=== PATIENT | male | born 1965 | race Caucasian/White ===

== ENCOUNTER 2017-09-23 18:19 | Inpatient (IN) | payer OTHER ==
[~2017-09-23] VITALS: Ht 170.2 cm; Wt 74.7 kg
[2017-09-23] MEDS ORDERED: SODIUM CHLORIDE 0.9% 1L BAG IV* STA (18:37)
--- NOTE | 2017-09-23 19:13 | RADRPT ---
PROCEDURE: Portable chest x-ray. CLINICAL INDICATION: Sepsis. TECHNIQUE: Portable AP view of the chest. COMPARISON: None. FINDINGS: No pulmonary edema or conolidation is identified. The cardiac silhouette is magnified. No pleural effusion is seen. There is no pneumothorax. IMPRESSION: 1. No evidence of acute cardiopulmonary disease. RPTAT: HTAR .Amaury Fonseca MD, MD Date Time Electronically viewed and signed by .Amaury Fonseca MD, on 09/23/2017 19:13 .R/
[2017-09-23 19:23] LABS: ABNORMAL IP MESSAGE 1; HEMATOCRIT 22.1 % (42.0-52.0); HEMOGLOBIN 7.2 g/dl (14.0-18.0); MEAN CORPUSCULAR HEMOGLOBIN 28.5 pg (29.0-33.0); MEAN CORPUSCULAR HGB CONC 32.6 g/dl (32.0-37.0); MEAN CORPUSCULAR VOLUME 87.4 fl (82.0-101.0); MEAN PLATELET VOLUME 9.6 fl (7.4-10.4); PLATELET COUNT 141 10^3/UL (140-415); POSITIVE DIFF @See below; RED BLOOD COUNT 2.53 10^6/ul (4.70-6.10); RED CELL DISTRIBUTION WIDTH 17.9 % (11.5-14.5); WHITE BLOOD COUNT 1.7 10^3/ul (4.8-10.8)
[2017-09-23] MEDS ORDERED: FENTAnyl 50 MCG/ML VIAL IV ONE (19:30)
[2017-09-23] MEDS ORDERED: ENAL10TA PO (19:34)
[2017-09-23] MEDS ORDERED: GLIM4TAB PO (19:34)
[2017-09-23 19:35] LABS: ALANINE AMINOTRANSFERASE 27 IU/L (13-69); ALBUMIN 3.3 g/dl (3.3-4.9); ALBUMIN/GLOBULIN RATIO 1.37; ALKALINE PHOSPHATASE 148 IU/L (42-121); ANION GAP 10 (8-16); ASPARTATE AMINO TRANSFERASE 30 IU/L (15-46); BILIRUBIN,INDIRECT 0.6 mg/dl (0-1.1); BILIRUBIN,TOTAL 0.6 mg/dl (0.2-1.3); BLOOD UREA NITROGEN 7 mg/dl (7-20); CALCIUM 8.2 mg/dl (8.4-10.2); CARBON DIOXIDE 23 mmol/L (21-31); CHLORIDE 106 mmol/L (97-110); CREATININE 1.13 mg/dl (0.61-1.24); GLUCOSE 129 mg/dl (70-220); POTASSIUM 3.4 mmol/L (3.5-5.1); SODIUM 136 mmol/L (135-144); TOTAL PROTEIN 5.7 g/dl (6.1-8.1)
[2017-09-23] MEDS ORDERED: BICA50TA4 PO (19:35)
[2017-09-23] MEDS ORDERED: ASC500 PO (19:35)
[2017-09-23] MEDS ORDERED: MTF1000T PO (19:35)
[2017-09-23] MEDS ORDERED: DULO20CA17 PO (19:36)
[2017-09-23] MEDS ORDERED: SITA100T8 PO (19:36)
[2017-09-23] MEDS ORDERED: SIMV40TA2 PO (19:36)
[2017-09-23] MEDS ORDERED: BENZ-5 PO (19:37)
[2017-09-23] MEDS ORDERED: FER325 PO (19:37)
[2017-09-23 19:40] LABS: INR 1.24; PARTIAL THROMBOPLASTIN TIME 33.8 Sec (25.0-35.0); PROTIME 15.8 Sec (11.9-14.9); PT RATIO 1.2
--- NOTE | 2017-09-23 19:47 | ERD ---
ER Documentation Chief Complaint Chief Complaint sent by pmd for low hemoglobin 7.1, on chemo therapy HPI 52y/o male, h/o diabetes, hypertension, dyslipidemia, anemia and Stage IV prostate cancer on chemotherapy, referred to ED by Oncology, Dr Lowery, for evaluation of anemia found on routine lab work yesterday. He reports ongoing severe generalized body, weakness, malaise and dizziness for several months. No chest pain , palpitations, shortness of breath or abdominal pain. Nausea but no vomiting or diarrhea. No hemoptysis, hematemesis, hematochezia or melanotic stools. Denies dysuria, polyuria, hematuria of flank pain. Chronic, nonpruritic rash on lower abdomen and upper thighs. Anorexia and weight loss but fevers, chills or night sweats. ROS All systems reviewed and are negative except as per history of present illness. Medications Home Meds Reported Medications Terazosin Hcl* (Terazosin Hcl*) 10 Mg Capsule, 10 MG PO HS, CAP 09/24/17 Ferrous Sulfate* (Ferrous Sulfate*) 325 Mg Tabec, 325 MG PO BID, TAB 09/23/17 Duloxetine Hcl* (Duloxetine Hcl*) 20 Mg Capsule.dr, 20 MG PO DAILY, #30 CAP 09/23/17 Simvastatin* (Zocor*) 40 Mg Tablet, 40 MG PO QHS, #30 TAB 09/23/17 Sitagliptin* (Januvia*) 100 Mg Tablet, 100 MG PO DAILY, #30 TAB 09/23/17 Metformin* (Glucophage*) 1,000 Mg Tablet, 1000 MG PO WITH BREAKFAST DINNE, #60 TAB 09/23/17 Bicalutamide* (Bicalutamide*) 50 Mg Tablet, 50 MG PO DAILY, TAB 09/23/17 Ascorbic Acid (Vitamin C) 500 Mg Tab, 500 MG PO BID, TAB 09/23/17 Glimepiride* (Glimepiride*) 4 Mg Tablet, 4 MG PO WITH BREAKFAST, TAB 09/23/17 Enalapril Maleate* (Enalapril Maleate*) 10 Mg Tablet, 10 MG PO DAILY, TAB 09/23/17 Allergies Allergies: Coded Allergies: No Known Allergy (Unverified , 09/23/17) PMhx/Soc Reviewed in chart. As per HPI. History of Surgery: Yes (LEFT MIDDLE FINGER SURGERY ) Hx Neurological Disorder: No Hx Respiratory Disorders: No Hx Cardiac Disorders: No Hx Psychiatric Problems: Yes (Depression) Hx Miscellaneous Medical Probl: Yes (DM, PROSATE AND BONE CA) Hx Alcohol Use: No Hx Substance Use: No Hx Tobacco Use: No Smoking Status: Never smoker FmHx No family history relevant to presenting complaint Physical Exam Vitals Vital Signs Date Time Temp Pulse Resp B/P Pulse Ox O2 Delivery O2 Flow Rate FiO2 09/23/17 20:54 85 17 111/66 100 Room Air 09/23/17 19:29 89 12 111/63 99 Room Air 09/23/17 18:24 98.9 114 18 79/46 98 Physical Exam Const: Alert, Ill-appearing Head: Atraumatic, alopecia Eyes: Pale Conjunctiva. GABRIEL, EOMI. No nystagmus. ENT: Normal External Ears, Nose and Mouth. No thrush. Neck: Full range of motion. No meningismus. Resp: Clear to auscultation bilaterally Cardio: Tachycardia regular rate and rhythm, no murmurs Abd: Soft, non tender, non distended. Normal bowel sounds Skin: No petechiae. Erythematous, maculopapular rash on lower abdomen and upper thighs. Back: No midline or flank tenderness Ext: No cyanosis, or edema. No calf swelling or tenderness. Pulses 4 + in all extremities Neur: Awake and alert. CN II-XII grossly intact. Motor and sensory equal bilaterally. No dysdiadochokinesis. Gait not tested. Psych: Anxious and appears depressed Result Diagram: 09/26/174 09/26/17 0444 Results 24 hrs Laboratory Tests Test 09/23/17 18:45 09/23/17 20:45 White Blood Count 1.710^3/ul Red Blood Count 2.5310^6/ul Hemoglobin 7.2g/dl Hematocrit 22.1% Mean Corpuscular Volume 87.4fl Mean Corpuscular Hemoglobin 28.5pg Mean Corpuscular Hemoglobin Concent 32.6g/dl Red Cell Distribution Width 17.9% Platelet Count 97043^3/UL Mean Platelet Volume 9.6fl Neutrophils % % Segmented Neutrophils % (Manual) 40% Band Neutrophils % (Manual) 18% Lymphocytes % % Lymphocytes % (Manual) 29% Monocytes % % Monocytes % (Manual) 11% Eosinophils % % Eosinophils % (Manual) 1% Basophils % % Basophils % (Manual) 1% Nucleated Red Blood Cells % 0.0/100WBC Neutrophils # 10^3/ul Neutrophils # (Manual) 0.710^3/ul Band Neutrophils # 0.310^3/ul Absolute Lymphocytes (Manual) 0.410^3/ul Lymphocytes # 10^3/ul Monocytes # 10^3/ul Absolute Monocytes (Manual) 0.110^3/ul Eosinophils # 10^3/ul Basophils # 10^3/ul Basophils # (Manual) 0.010^3/ul Nucleated Red Blood Cells # 10^3/ul Pathologist Review (Hematology) CH Platelet Estimate NORMAL Giant Platelets 2% Polychromasia 3+ Poikilocytosis 3+ Anisocytosis 3+ Microcytosis 3+ Prothrombin Time 15.8Sec Prothrombin Time Ratio 1.2 INR International Normalized Ratio 1.24 Activated Partial Thromboplast Time 33.8Sec Sodium Level 136mmol/L Potassium Level 3.4mmol/L Chloride Level 106mmol/L Carbon Dioxide Level 23mmol/L Anion Gap 10 Blood Urea Nitrogen 7mg/dl Creatinine 1.13mg/dl Glucose Level 129mg/dl Lactic Acid Level 3.3mmol/L 2.6mmol/L Calcium Level 8.2mg/dl Total Bilirubin 0.6mg/dl Direct Bilirubin 0.00mg/dl Indirect Bilirubin 0.6mg/dl Aspartate Amino Transf (AST/SGOT) 30IU/L Alanine Aminotransferase (ALT/SGPT) 27IU/L Alkaline Phosphatase 148IU/L Troponin I < 0.012ng/ml Total Protein 5.7g/dl Albumin 3.3g/dl Globulin 2.40g/dl Albumin/Globulin Ratio 1.37 Urine Color YELLOW Urine Clarity CLOUDY Urine pH 5.0 Urine Specific [place] 1.010 Urine Ketones NEGATIVEmg/dL Urine Nitrite NEGATIVEmg/dL Urine Bilirubin NEGATIVEmg/dL Urine Urobilinogen NEGATIVEmg/dL Urine Leukocyte Esterase NEGATIVELeu/ul Urine Microscopic RBC 1/HPF Urine Microscopic WBC 8/HPF Urine Amorphous Crystals MODERATE/HPF Urine Bacteria FEW/HPF Urine Mucus FEW/HPF Urine Hemoglobin NEGATIVEmg/dL Urine Glucose NEGATIVEmg/dL Urine Total Protein 2+mg/dl Current Medications Medications (Trade) Dose Ordered Sig/Joe Route PRN Reason Start Time Stop Time Status Last Admin Dose Admin Sodium Chloride (NS) 2,320 ml BOLUS OVER 2 HOURS STAT IV* 09/23/17 18:37 09/23/17 18:41 DC 09/23/17 19:17 Fentanyl 25 mcg 25 mcg ONCE ONCE IV 09/23/17 19:30 09/23/17 19:32 DC 09/23/17 19:24 Vancomycin HCl 250 ml @ 125 mls/hr ONCE STAT IVPB 09/23/17 20:13 09/23/17 22:12 DC 09/23/17 20:13 Cefepime HCl (Maxipime 2gm/50 ml (Pmx)) 50 ml @ 100 mls/hr ONCE STAT IVPB 09/23/17 20:13 09/23/17 20:42 DC 09/23/17 20:42 Filgrastim (Neupogen) 480 mcg ONCE ONCE SC 09/23/17 21:00 09/23/17 21:01 DC 09/23/17 22:16 EKG: TIME: 18: 45. Sinus rhythm. Ventricular rate 90. Normal MT and QRS. Left axis deviation. No acute ST segment elevation or depression. No ectopy. EP Interpretation: Abnormal EKG. IMAGING: Cardiac silhouette is normal. The costophrenic angles are clear. No effusions or infiltrates. No abnormalities of the bony thorax. EP interpretation: Normal chest x-ray. Procedures/MDM DOCUMENTS REVIEWED: ED nurse, no prior records MEDICAL DECISION MAKINy/o male, h/o diabetes, hypertension, dyslipidemia, anemia and Stage IV prostate cancer on chemotherapy, referred to ED by Oncology , Dr Lowery, for evaluation of anemia found on routine lab work yesterday. Patient with absolute neutrophil count of 0.4, elevated Lactate 3.3 with repeat of 2.6 consistent with severe sepsis, however no infectious etiology identified. Other causes of lactate acidosis considered. Hypotensive in triage but repeat BP in the ED normal and stable. 30cc/kg fluid bolus given and antibiotics initiated after broad spectrum cultures. Severe anemia pending transfusion. As per oncology recommendation Neupogen ordered. Ongoing generalized body pain due to metastatic disease treated with appropriate analgesics. Dizziness of uncertain etiology that has been present since the initiation of chemotherapy may be drug induced. No focal deficit, headache, seizure, signs of increased ICP or indication for emergent neuroimaging, although intracranial metastatic disease is possible. Patient's infectious symptoms have not stabilized and the patient is at risk of rapid decompensation. The patient will be admitted to an isolation bed for careful hydration, antibiotic therapy, and infectious source control. Accepting Care Team Current data and ongoing care discussed. Time: [] Admitting Physician: [] Biscuitware Brusher(s): Outstanding Data: []None Critical Care Time: 40 minutes Treatments/Evaluations: Close monitoring and treatment of unstable vital signs, cardiorespiratory, and neurologic status, while maintaining tight balance of fluid, respiratory, and cardiac interventions. This includes the administration of emergency fluid management while maintaining close respiratory support as well as the provision of immediate and broad-spectrum antibiotic therapy, while performing a simultaneous assessment for possible sources in order to direct targeted therapy. This time includes discussing the case with the patient and the patient's family. This time also includes the consideration for invasive and chemical support to prevent cardiopulmonary collapse. This time does not include all procedures stated elsewhere in this record. This time also includes reviewing old records, labs and radiological studies. This time includes examining and re-examining the patient. Additionally, this time also includes arranging care with admitting and consulting physicians. Counseled [patient and family] regarding diagnosis, diagnostic results and plan for admission. CALLS/CONSULTS: Time 20:50, Dr. Lowery, Recommends agrees with telemetry admission. CALLS/CONSULTS: Time 20:50, Dr. Pulido, Recommends agrees with telemetry admission. PATIENT CARE TRANSITIONED: Time: 21:02, Dr. Pulido. Departure Diagnosis: Primary Impression: Severe sepsis Additional Impressions: Neutropenia Neutropenia type: secondary to cancer chemotherapy Qualified Code: D70.1 - Chemotherapy-induced neutropenia Severe anemia Prostate CA Condition: Serious KIRSTEN VARGAS MD Sep 23, 2017 19:47 KIRSTEN VARGAS MD Sep 23, 2017 19:47
[2017-09-23] MEDS ORDERED: VANCOMYCIN 1 GM (PMX) 250 ML IVPB STA (20:13)
[2017-09-23] MEDS ORDERED: CEFEPIME 2GM/50 ML (PMX) 50 ML IVPB STA (20:13)
[2017-09-23 20:20] LABS: ANISOCYTOSIS 3+ (0-0); BASOPHILS % (M) 1 % (0-2); BURR CELLS 2+ (0-0); EOSINOPHILS % (M) 1 % (0-7); GIANT THROMBO% (M) 2 % (0-0); MICROCYTOSIS 3+ (0-0); MONOCYTES % (M) 11 % (0-11); PLATELET ESTIMATE NORMAL; POIKILOCYTOSIS 3+ (0-0); POLYCHROMASIA 3+ (0-0)
[2017-09-23 20:25] LABS: PATH REVIEW? YES; TROPONIN-I < 0.012 ng/ml (0.00-0.12)
[2017-09-23] MEDS ORDERED: FILGRASTIM 480 MCG INJ SC ONE (21:00)
[2017-09-23 21:19] LABS: ADD UMIC YES; UR AMORPHOUS CRYSTAL MODERATE /HPF (NONE SEEN); UR ASCORBIC ACID 40 mg/dL (NEGATIVE); UR BACTERIA FEW /HPF (NONE SEEN); UR BILIRUBIN (Dip) NEGATIVE (NEGATIVE); UR BLOOD (Dip) NEGATIVE (NEGATIVE); UR CLARITY CLOUDY (CLEAR); UR COLOR YELLOW (YELLOW); UR GLUCOSE (Dip) NEGATIVE (NEGATIVE); UR KETONES (Dip) NEGATIVE (NEGATIVE); UR LEUKOCYTE ESTERASE (Dip) NEGATIVE Leu/ul (NEGATIVE); UR MUCUS FEW /HPF (NONE SEEN); UR NITRITE (Dip) NEGATIVE (NEGATIVE); UR RBC 1 /HPF (0-5); UR TOTAL PROTEIN (Dip) 2+ mg/dl (NEGATIVE); UR UROBILINOGEN (Dip) NEGATIVE (NEGATIVE)
[2017-09-23] MEDS ORDERED: ACETAMINOPHEN 325 MG TAB PO PRN ×2 (21:30→23:30)
[2017-09-23] MEDS ORDERED: ONDANSETRON 4 MG INJ IV PRN (21:30)
[2017-09-23 23:25] VITALS: BP 112/54; PULSE 96; RESP 18
[2017-09-23] MEDS ORDERED: morphine 2 MG INJ IV PRN (23:30)
[2017-09-23] MEDS ORDERED: BENZONATATE 100 MG CAP PO PRN (23:30)
[2017-09-23] MEDS ORDERED: NACL 0.9% 3 ML SYG IV SCH (23:30)
[2017-09-23] MEDS ORDERED: ALBUTEROL/IPRATROPIUM (NEB) 3 ML AMP HHN PRN (23:30)
[2017-09-23 23:45] VITALS: Ht 170.2 cm; Wt 74.7 kg
[2017-09-23] MEDS: SOD CHLORIDE 0.9% 1,000 ML IV SCH (23:49)
[2017-09-24] VITALS (9 sets, daily range): BP systolic 98–122; BP diastolic 57–78; PULSE 81–90; RESP 16–20
[2017-09-24] MEDS ORDERED: HYDROCODONE/APAP (10/325) TAB PO PRN (05:30)
[2017-09-24 06:19] LABS: BASOPHILS % 0.8 % (0.0-2.0); EOSINOPHILS % 0.4 % (0.0-7.0); HEMATOCRIT 25.7 % (42.0-52.0); HEMOGLOBIN 8.5 g/dl (14.0-18.0); LYMPHOCYTES # 0.8 10^3/ul (0.8-2.9); LYMPHOCYTES % 31.1 % (15.0-51.0); MEAN CORPUSCULAR HGB CONC 33.1 g/dl (32.0-37.0); MEAN CORPUSCULAR VOLUME 87.7 fl (82.0-101.0); MEAN PLATELET VOLUME 10.1 fl (7.4-10.4); MONOCYTE # 0.4 10^3/ul (0.3-0.9); MONOCYTES % 15.7 % (0.0-11.0); NEUTROPHIL # 1.3 10^3/ul (1.6-7.5); NEUTROPHILS % 51.2 % (39.0-77.0); PLATELET COUNT 155 10^3/UL (140-415); POSITIVE DIFF @See below; RED BLOOD COUNT 2.93 10^6/ul (4.70-6.10); RED CELL DISTRIBUTION WIDTH 16.7 % (11.5-14.5); WHITE BLOOD COUNT 2.5 10^3/ul (4.8-10.8)
[2017-09-24 06:39] LABS: IRON 84 ug/dl (35-150)
[2017-09-24 06:49] LABS: TOTAL IRON BINDING CAPACITY 251 ug/dl (241-421)
[2017-09-24 06:59] LABS: ALBUMIN 3.2 g/dl (3.3-4.9); ALBUMIN/GLOBULIN RATIO 1.18; BILIRUBIN,INDIRECT 1.5 mg/dl (0-1.1); BILIRUBIN,TOTAL 1.5 mg/dl (0.2-1.3); CALCIUM 8.1 mg/dl (8.4-10.2); CHOL/HDL RATIO 3.9 RATIO; CREATININE 0.96 mg/dl (0.61-1.24); MAGNESIUM 2.2 mg/dl (1.7-2.5); PHOSPHORUS 1.3 mg/dl (2.5-4.9); POTASSIUM 3.3 mmol/L (3.5-5.1); TOTAL PROTEIN 5.9 g/dl (6.1-8.1)
--- NOTE | 2017-09-24 07:43 | HP ---
Date/Time of Note Date/Time of Note DATE: 09/24/17 TIME: 07:38 Assessment/Plan VTE Prophylaxis VTE Prophylaxis Intervention: SCD's Lines/Catheters IV [facility] (from [facility]): Peripheral IV Assessment/Plan Assessment/Plan 1. Bicytopenia, with anemia and leukopenia: Chemo induced -Blood transfusion -Neutropenic precaution -Check for iron deficiency -Consider Neupogen 2. Stage IV prostate cancer: On chemo, last was 3 weeks ago -He will follow-up with oncologist as outpatient 3. History of hypertension: Blood pressure within goal -Continue antihypertensives adjustment as needed 4. Type 2 diabetes -Insulin while in-house 5. History of dyslipidemia -Continue statin Urinary tract infection -IV antibiotics -Follow-up culture results HPI/ROS Admit Date/Time Admit Date/Time Sep 23, 2017 at 21:21 Hx of Present Illness This is a 52-year-old male with a history of stage IV prostate cancer on chemo, hypertension, type 2 diabetes, dyslipidemia, depression, iron deficiency anemia. Patient was sent by his oncologist because of abnormal lab values including anemia and leukopenia. He complains of generalized weakness and chronic total body pain mainly back pain. Denied chest pain, shortness of breath, fever, chills, nausea or vomiting. When he presented to the ER he was found to have a hemoglobin of 7.2, WBC 1.7, potassium 3.4, initial lactate of 3.3 which trended down to 2.1 and alkaline phosphatase of 148. Urinalysis was consistent with UTI. His vitals have been stable. PMH/Family/Social Social History Smoking Status: Never smoker Exam/Review of Systems Vital Signs Vitals Vital Signs Date Time Temp Pulse Resp B/P Pulse Ox O2 Delivery O2 Flow Rate FiO2 09/24/17 05:00 98.2 82 16 98/57 98 Room Air Intake and Output 09/23/17 09/23/17 09/24/17 15:00 23:00 07:00 Intake Total 2320 ml 800 ml Balance 2320 ml 800 ml Exam Constitutional: alert, oriented, well developed Head: atraumatic, normocephalic Eyes: EOMI, PERRL Respiratory: clear to auscultation, normal air movement Cardiovascular: nl pulses, regular rate and rhythm Gastrointestinal: non-tender, soft Extremities: normal pulses Labs Result Diagram: 09/24/17 0500 09/24/17 0500 Medications Medications Current Medications Sodium Chloride (NS) 1,000 ml @ 100 mls/hr Q10H IV Last administered on 23:49; Admin Dose 100 MLS/HR; Start 09/23/17 at 23:23; Stop 09/24/17 at 23: 00 Ondansetron HCl (Zofran Inj) 4 mg Q6H PRN IV NAUSEA AND/OR VOMITING; Start 09/23/17 at 23:30 Acetaminophen (Tylenol Tab) 650 mg Q6H PRN PO PAIN LEVEL 1-3 OR FEVER; Start 09/23/17 at 23:30 Morphine Sulfate (morphine) 2 mg Q4H PRN IV SEVERE PAIN LEVEL 7-10 Last administered on 09/23/17 23:48; Admin Dose 2 MG; Start 09/23/17 at 23:30 Famotidine (Pepcid) 20 mg Q12 PO ; Start 09/24/17 at 09:00 Ascorbic Acid (Vitamin C) 500 mg BID PO ; Start 09/24/17 at 09:00 Benzonatate (Tessalon) 100 mg TID PRN PO COUGH; Start 09/23/17 at 23:30 Bicalutamide (Casodex) 50 mg DAILY PO ; Start 09/24/17 at 09:00 Duloxetine HCl (Cymbalta) 20 mg DAILY PO ; Start 09/24/17 at 09:00 Enalapril Maleate (Vasotec) 10 mg DAILY PO ; Start 09/24/17 at 09:00 Ferrous Sulfate (Ferrous Sulfate (Ec)) 325 mg BID PO ; Start 09/24/17 at 09:00 Atorvastatin Calcium (Lipitor) 20 mg DAILY@21 PO ; Start 09/24/17 at 21:00 Linagliptin 5 mg 5 mg DAILY PO ; Start 09/24/17 at 09:00 Ceftriaxone Sodium (Rocephin) 50 ml @ 100 mls/hr Q12H IVPB ; Start 09/24/17 at 09:00 Acetaminophen/ Hydrocodone Bitart ([place] (10/325)) 1 tab Q4H PRN PO PAIN; Start 09/24/17 at 05:30 OMAYRA BLAIR MD Sep 24, 2017 07:43
[2017-09-24] MEDS ORDERED: CEFTRIAXONE 1 GM/50 ML (PMX) 50 ML IVPB SCH (09:00)
[2017-09-24] MEDS: SOD CHLORIDE 0.9% 1,000 ML IV SCH ×2 (09:23→19:23)
[2017-09-24] MEDS: ASCORBIC ACID 500 MG TAB PO SCH ×2 (09:33→20:54)
[2017-09-24] MEDS: LINAGLIPTIN 5 MG TABLET PO SCH (09:34)
[2017-09-24] MEDS: FERROUS SULFATE (EC) 325 MG TAB PO SCH ×2 (09:34→20:54)
[2017-09-24] MEDS: DULOXETINE 20 MG CAP DR PO SCH (09:34)
[2017-09-24] MEDS: ENALAPRIL 10 MG TAB PO SCH (09:35)
[2017-09-24] MEDS: FAMOTIDINE 20 MG TAB PO SCH ×2 (09:35→20:55)
[2017-09-24] MEDS ORDERED: VANCOMYCIN IV PER PHARMACY XX SCH (10:30)
[2017-09-24] MEDS: BICALUTAMIDE 50 MG TAB PO SCH (11:37)
[2017-09-24] MEDS ORDERED: POTASSIUM CHLORIDE 250 ML IVPB ONE (12:00)
[2017-09-24] MEDS: NYSTATIN 15 GM CR TOP SCH ×2 (12:37→21:08)
[2017-09-24] MEDS: PIPER-TAZO 3.375 GM IV (PMX) 50 ML IVPB SCH ×3 (12:37→23:45)
[2017-09-24] MEDS: ONDANSETRON 4 MG INJ IV PRN ×2 (13:16→22:37)
--- NOTE | 2017-09-24 14:37 | PN ---
Date/Time of Note Date/Time of Note DATE: 09/24/17 TIME: 14:36 Assessment/Plan VTE Prophylaxis VTE Prophylaxis Intervention: SCD's Lines/Catheters [facility] Peripheral IV Urinary Cath still in place: No Assessment/Plan Chief Complaint/Hosp Course Subjective Patient has multiple complaints, however are chronic Objective Physical exam General: Patient is laying in bed and answers questions appropriately Mentation: Patient is alert and oriented 4, Head: Normocephalic atraumatic Eyes: EOMI, pupils reactive to light Neck: Supple, nontender, midline Respiratory: Clear to auscultation bilaterally Cardiovascular: regular rate, no obvious murmurs Gastrointestinal: non-tender to palpation, bowel sounds heard. Neurological: Moves all extremities spontaneously Skin: mild erythematous rash on abdomen and thigh Assessment and plan Neutropenia and [place] -Patient's oncologist's office was called, however no one picked up, no answering service will try again tomorrow -Was sent per oncologist for transfusion, received 1 unit Bilateral vision loss -Chronic, patient states that ever since he started chemotherapy his vision has been decreasing -Patient states that oncologist stated this was normal, very likely reaction to chemotherapy -CT head pending Abdominal dermatitis -Including thigh and buttock area -Possible fungal rash given neutropenic state -Nystatin cream UTI -Broad-spectrum antibiotics giving neutropenic state Stage IV prostate cancer -On chemo 9 cycles total so far -Radiation therapy is pending for next year Hypertension -Continue home meds as needed Diabetes -Insulin Disposition -PT OT and dispose home when safe, patient and patient's wants to go home after. Problems: Exam/Review of Systems Vital Signs Vitals Vital Signs Date Time Temp Pulse Resp B/P Pulse Ox O2 Delivery O2 Flow Rate FiO2 09/24/17 08:14 98.5 81 18 103/59 98 09/24/17 05:00 Room Air Intake and Output 09/23/17 09/23/17 09/24/17 15:00 23:00 07:00 Intake Total 2320 ml 800 ml Balance 2320 ml 800 ml Results Result Diagram: 09/24/17 0500 09/24/17 0500 Results 24 hrs Laboratory Tests Test 09/23/17 18:45 09/23/17 20:45 09/23/17 22:52 09/24/17 05:00 White Blood Count 1.7 L 2.5 #L Red Blood Count 2.53 L 2.93 L Hemoglobin 7.2 L 8.5 L Hematocrit 22.1 L 25.7 L Mean Corpuscular Volume 87.4 87.7 Mean Corpuscular Hemoglobin 28.5 L 29.0 Mean Corpuscular Hemoglobin Concent 32.6 33.1 Red Cell Distribution Width 17.9 H 16.7 H Platelet Count 141 155 Mean Platelet Volume 9.6 10.1 Neutrophils % 51.2 Segmented Neutrophils % (Manual) 40 Band Neutrophils % (Manual) 18 H Lymphocytes % 31.1 Lymphocytes % (Manual) 29 Monocytes % 15.7 H Monocytes % (Manual) 11 Eosinophils % 0.4 Eosinophils % (Manual) 1 Basophils % 0.8 Basophils % (Manual) 1 Nucleated Red Blood Cells % 0.0 0.0 Neutrophils # 1.3 L Neutrophils # (Manual) 0.7 L Band Neutrophils # 0.3 Absolute Lymphocytes (Manual) 0.4 L Lymphocytes # 0.8 Monocytes # 0.4 Absolute Monocytes (Manual) 0.1 L Eosinophils # 0.0 Basophils # 0.0 Basophils # (Manual) 0.0 Nucleated Red Blood Cells # 0.0 Pathologist Review (Hematology) YES Platelet Estimate NORMAL Giant Platelets 2 H Polychromasia 3+ Poikilocytosis 3+ Anisocytosis 3+ Microcytosis 3+ Prothrombin Time 15.8 H Prothrombin Time Ratio 1.2 INR International Normalized Ratio 1.24 Activated Partial Thromboplast Time 33.8 Sodium Level 136 143 Potassium Level 3.4 L 3.3 L Chloride Level 106 111 H Carbon Dioxide Level 23 24 Anion Gap 10 11 Blood Urea Nitrogen 7 6 L Creatinine 1.13 0.96 Glucose Level 129 74 # Lactic Acid Level 3.3 *H 2.6 *H 2.1 H Calcium Level 8.2 L 8.1 L Total Bilirubin 0.6 1.5 H Direct Bilirubin 0.00 0.00 Indirect Bilirubin 0.6 1.5 H Aspartate Amino Transf (AST/SGOT) 30 37 Alanine Aminotransferase (ALT/SGPT) 27 26 Alkaline Phosphatase 148 H 145 H Troponin I < 0.012 Total Protein 5.7 L 5.9 L Albumin 3.3 3.2 L Globulin 2.40 2.70 Albumin/Globulin Ratio 1.37 1.18 Urine Color YELLOW Urine Clarity CLOUDY A Urine pH 5.0 Urine Specific [place] 1.010 Urine Ketones NEGATIVE Urine Nitrite NEGATIVE Urine Bilirubin NEGATIVE Urine Urobilinogen NEGATIVE Urine Leukocyte Esterase NEGATIVE Urine Microscopic RBC 1 Urine Microscopic WBC 8 H Urine Amorphous Crystals MODERATE Urine Bacteria FEW A Urine Mucus FEW A Urine Hemoglobin NEGATIVE Urine Glucose NEGATIVE Urine Total Protein 2+ H Hemoglobin A1c 5.9 Phosphorus Level 1.3 L Magnesium Level 2.2 Iron Level 84 Total Iron Binding Capacity 251 Percent Iron Saturation 33 Ferritin 495.0 H Triglycerides Level 210 H Cholesterol Level 95 L LDL Cholesterol, Calculated 29 HDL Cholesterol 24 L Cholesterol/HDL Ratio 3.9 Test 09/24/17 07:07 09/24/17 09:33 09/24/17 12:45 Lab Scanned Report BLOOD TRANSFUSION Bedside Glucose 78 92 Medications Medications Current Medications Sodium Chloride (NS) 1,000 ml @ 100 mls/hr Q10H IV Last administered on 23:49; Admin Dose 100 MLS/HR; Start 09/23/17 at 23:23; Stop 09/24/17 at 23: 00 Ondansetron HCl (Zofran Inj) 4 mg Q6H PRN IV NAUSEA AND/OR VOMITING Last administered on 09/24/17 13:16; Admin Dose 4 MG; Start 09/23/17 at 23:30 Acetaminophen (Tylenol Tab) 650 mg Q6H PRN PO PAIN LEVEL 1-3 OR FEVER; Start 09/23/17 at 23:30 Morphine Sulfate (morphine) 2 mg Q4H PRN IV SEVERE PAIN LEVEL 7-10 Last administered on 09/23/17 23:48; Admin Dose 2 MG; Start 09/23/17 at 23:30 Famotidine (Pepcid) 20 mg Q12 PO Last administered on 09/24/17 09:35; Admin Dose 20 MG; Start 09/24/17 at 09:00 Ascorbic Acid (Vitamin C) 500 mg BID PO Last administered on 09/24/17 09:33; Admin Dose 500 MG; Start 09/24/17 at 09:00 Benzonatate (Tessalon) 100 mg TID PRN PO COUGH; Start 09/23/17 at 23:30 Bicalutamide (Casodex) 50 mg DAILY PO Last administered on 09/24/17 11:37; Admin Dose 50 MG; Start 09/24/17 at 09:00 Duloxetine HCl (Cymbalta) 20 mg DAILY PO Last administered on 09/24/17 09:34; Admin Dose 20 MG; Start 09/24/17 at 09:00 Enalapril Maleate (Vasotec) 10 mg DAILY PO Last administered on 09/24/17 09:35 ; Admin Dose 10 MG; Start 09/24/17 at 09:00 Ferrous Sulfate (Ferrous Sulfate (Ec)) 325 mg BID PO Last administered on 09:34; Admin Dose 325 MG; Start 09/24/17 at 09:00 Atorvastatin Calcium (Lipitor) 20 mg DAILY@21 PO ; Start 09/24/17 at 21:00 Linagliptin (Tradjenta) 5 mg DAILY PO Last administered on 09/24/17 09:34; Admin Dose 5 MG; Start 09/24/17 at 09:00 Acetaminophen/ Hydrocodone Bitart 1 tab 1 tab Q4H PRN PO PAIN Last administered on 09/24/17 12:38; Admin Dose 1 TAB; Start 09/24/17 at 05:30 Vancomycin HCl 250 ml @ 125 mls/hr Q12H IVPB ; Start 09/24/17 at 13:00 Piperacillin Sod/ Tazobactam Sod 50 ml @ 100 mls/hr Q6 IVPB Last administered on 09/24/17 12:37; Admin Dose 100 MLS/HR; Start 09/24/17 at 12:00 Potassium Chloride (KCl 40 MEQ/250 ML NS) 250 ml @ 62.5 mls/hr ONCE ONCE IVPB ; Start 09/24/17 at 12:00; Stop 09/24/17 at 15:59 Nystatin (Nystatin Cr) 1 applic BID TOP Last administered on 09/24/17 12:37; Admin Dose 1 APPLIC; Start 09/24/17 at 13:00 Miscellaneous Information (*Rx Drug Level Order Reminder*) VANCOMYCIN TROUGH ON @ .. ONCE ONCE XX ; Start 09/25/17 at 12:00; Stop 09/25/17 at 12:01 OLYA LOPEZ Sep 24, 2017 14:37
[2017-09-24] MEDS: VANCOMYCIN 1 GM (PMX) 250 ML IVPB SCH (15:07)
--- NOTE | 2017-09-24 15:57 | RADRPT ---
PROCEDURE: CT Brain without contrast. CLINICAL INDICATION: Decreased vision. TECHNIQUE: A CT of the brain without contrast was performed utilizing axial sections from the skul l base through the vertex. One or more the following does reduction techniques were utilized: Automa jina exposure control, adjustment of the mA/ or kV according to patient's size, or use of iterative r econstruction technique. Total exam CTDIvol is 45.01 MGy and DLP is 720.23 mGy-cm. DICOM images are available. COMPARISON: None available. FINDINGS: The ventricles and sulci are mildly prominent indicative of volume loss. There is no intracranial h emorrhage, mass effect or midline shift. No abnormal intra-axial or extra-axial fluid collections a re seen. The gomez/white matter differentiation is well preserved. There are mild foci of hypoattenuation in the white matter, which are nonspecific in etiology but li arianna reflect chronic small vessel ischemic changes. There is prominent retrocerebellar CSF space grayson suring 1.6 cm in AP diameter which may represent lupe cisterna magna versus arachnoid cyst. The visu alized paranasal sinuses demonstrate moderate scattered mucosal thickening more pronounced in ethmoi d air cells and sphenoid sinuses with associated fluid levels in bilateral sphenoid sinuses. IMPRESSION: 1. No acute intracranial hemorrhage, transcortical infarction or mass effect. If clinical concern p ersists consider brain MRI. 2. Mild mild chronic small vessel ischemic changes. 3. Prominent right parasagittal retrocerebellar CSF space which may represent lupe cisterna magna v ersus arachnoid cyst. 4. Mild generalized cerebral volume loss. 5. Moderate paranasal sinus disease with fluid levels in bilateral sphenoid sinuses. RPTAT: HFN .Saima Blevins MD, MD Date Time Electronically viewed and signed by .Saima Blevins MD, MD on 09/24/2017 15:56 .N/
[2017-09-24 17:13] LABS: PATH REVIEW CH
[2017-09-24] MEDS: ATORVASTATIN 20 MG TAB PO SCH (20:54)
[2017-09-24] MEDS ORDERED: TERA10CA42 PO (21:05)
[2017-09-24] MEDS: TERAZOSIN 5 MG CAP PO SCH (23:33)
[2017-09-25] MEDS: VANCOMYCIN 1 GM (PMX) 250 ML IVPB SCH ×2 (01:15→13:30)
[2017-09-25 03:32] VITALS: BP 100/72; RESP 18
[2017-09-25 05:46] LABS: ABNORMAL IP MESSAGE 1; HEMATOCRIT 26.6 % (42.0-52.0); HEMOGLOBIN 8.7 g/dl (14.0-18.0); MEAN CORPUSCULAR HEMOGLOBIN 28.7 pg (29.0-33.0); MEAN CORPUSCULAR HGB CONC 32.7 g/dl (32.0-37.0); MEAN CORPUSCULAR VOLUME 87.8 fl (82.0-101.0); NUCLEATED RED BLOOD CELLS% 0.9 /100WBC (0.0-0.0); PLATELET COUNT 146 10^3/UL (140-415); POSITIVE DIFF @See below; RED BLOOD COUNT 3.03 10^6/ul (4.70-6.10); RED CELL DISTRIBUTION WIDTH 17.2 % (11.5-14.5); WHITE BLOOD COUNT 4.4 10^3/ul (4.8-10.8)
[2017-09-25 06:20] LABS: CALCIUM 8.1 mg/dl (8.4-10.2); CREATININE 1.01 mg/dl (0.61-1.24); MAGNESIUM 2.2 mg/dl (1.7-2.5); POTASSIUM 3.5 mmol/L (3.5-5.1)
[2017-09-25] MEDS: PIPER-TAZO 3.375 GM IV (PMX) 50 ML IVPB SCH ×3 (06:24→21:24)
[2017-09-25 08:00] VITALS: BP 106/64; RESP 18
[2017-09-25] MEDS: FAMOTIDINE 20 MG TAB PO SCH ×2 (08:56→21:24)
[2017-09-25] MEDS: ENALAPRIL 10 MG TAB PO SCH (08:57)
[2017-09-25] MEDS: ASCORBIC ACID 500 MG TAB PO SCH ×2 (08:57→21:25)
[2017-09-25] MEDS: DULOXETINE 20 MG CAP DR PO SCH (08:57)
[2017-09-25] MEDS: FERROUS SULFATE (EC) 325 MG TAB PO SCH ×2 (08:57→21:25)
[2017-09-25] MEDS: LINAGLIPTIN 5 MG TABLET PO SCH (08:57)
[2017-09-25] MEDS: BICALUTAMIDE 50 MG TAB PO SCH (08:59)
[2017-09-25] MEDS: NYSTATIN 15 GM CR TOP SCH ×2 (09:00→21:43)
[2017-09-25 11:12] LABS: ANISOCYTOSIS 3+ (0-0); EOSINOPHILS % (M) 2 % (0-7); ERYTHROBLAST% (NRBC) (M) 1 % (0-0); GIANT THROMBO% (M) 2 % (0-0); MICROCYTOSIS 3+ (0-0); MONOCYTES % (M) 16 % (0-11); PLATELET ESTIMATE NORMAL; POIKILOCYTOSIS 1+ (0-0); POLYCHROMASIA 3+ (0-0)
--- NOTE | 2017-09-25 12:44 | PN ---
Date/Time of Note Date/Time of Note DATE: 09/25/17 TIME: 12:39 Assessment/Plan VTE Prophylaxis VTE Prophylaxis Intervention: SCD's Lines/Catheters IV Catheter Type (from [facility]): Peripheral IV Urinary Cath still in place: No Assessment/Plan Chief Complaint/Hosp Course Subjective 12.8 Patient has multiple complaints, however are chronic 12.9 feels slightly better today Objective Physical exam General: Patient is laying in bed and answers questions appropriately Mentation: Patient is alert and oriented 4, Head: Normocephalic atraumatic Eyes: EOMI, pupils reactive to light Neck: Supple, nontender, midline Respiratory: Clear to auscultation bilaterally Cardiovascular: regular rate, no obvious murmurs Gastrointestinal: non-tender to palpation, bowel sounds heard. Neurological: Moves all extremities spontaneously Skin: mild erythematous rash on abdomen and thigh Assessment and plan Neutropenia and Colstrip -Patient's oncologist's office was called, however no one picked up, patient's son went to oncologist office and was told that he is aware of the patient's hospitalization -Was sent per oncologist for transfusion, received 2 units -uptrending wbc count and stable anemia -2/2 chemo and metastatic prostate cancer Bilateral vision loss -Chronic, patient states that ever since he started chemotherapy his vision has been decreasing, currently very blurry on left eye, R eye having some mild issues, been present since nov of this year. Attempted to call ophthalmology, however no application support consultant lead tinner available at this location, will monitor for acute vision changes. Told patient and that it is very important patient follow up with an lead tinner immediately in the outpatient setting -Patient states that oncologist stated this was normal, very likely reaction to chemotherapy -CT head shows likely incidental findings of possible cyst, however will consult neurology, Dr. Garcia, MRI ordered Abdominal dermatitis -Including thigh and buttock area -Possible fungal rash given neutropenic state -Nystatin cream UTI -Broad-spectrum antibiotics giving neutropenic state Stage IV prostate cancer -On chemo 9 cycles total so far -Radiation therapy is pending for next year Hypertension -Continue home meds as needed Diabetes -Insulin Disposition -PT OT and dispose home when safe, patient and patient's wants to go home after. Problems: Exam/Review of Systems Vital Signs Vitals Vital Signs Date Time Temp Pulse Resp B/P Pulse Ox O2 Delivery O2 Flow Rate FiO2 09/25/17 08:00 98.1 73 18 106/64 97 09/24/17 05:00 Room Air Intake and Output 09/24/17 09/24/17 09/25/17 15:00 23:00 07:00 Intake Total 290 ml 1040 ml 1300 ml Balance 290 ml 1040 ml 1300 ml Results Result Diagram: 09/25/17 0434 09/25/17 0434 Results 24 hrs Laboratory Tests Test 09/24/17 12:45 09/25/17 04:34 09/25/17 06:59 Bedside Glucose 92 White Blood Count 4.4 #L Red Blood Count 3.03 L Hemoglobin 8.7 L Hematocrit 26.6 L Mean Corpuscular Volume 87.8 Mean Corpuscular Hemoglobin 28.7 L Mean Corpuscular Hemoglobin Concent 32.7 Red Cell Distribution Width 17.2 H Platelet Count 146 Mean Platelet Volume 10.0 Neutrophils % Segmented Neutrophils % (Manual) 44 Band Neutrophils % (Manual) 22 H Lymphocytes % Lymphocytes % (Manual) 16 Monocytes % Monocytes % (Manual) 16 H Eosinophils % Eosinophils % (Manual) 2 Basophils % Nucleated Red Blood Cells % 1 H Neutrophils # Neutrophils # (Manual) 2.0 Band Neutrophils # 0.9 H Absolute Lymphocytes (Manual) 0.7 L Lymphocytes # Monocytes # Absolute Monocytes (Manual) 0.7 Eosinophils # Basophils # Nucleated Red Blood Cells # Platelet Estimate NORMAL Giant Platelets 2 H Polychromasia 3+ Poikilocytosis 1+ Anisocytosis 3+ Microcytosis 3+ Sodium Level 142 Potassium Level 3.5 Chloride Level 113 H Carbon Dioxide Level 23 Anion Gap 10 Blood Urea Nitrogen 5 L Creatinine 1.01 Glucose Level 71 Lactic Acid Level 1.4 Calcium Level 8.1 L Phosphorus Level 1.0 L Magnesium Level 2.2 Lab Scanned Report BLOOD TRANSFUSION Medications Medications Current Medications Ondansetron HCl (Zofran Inj) 4 mg Q6H PRN IV NAUSEA AND/OR VOMITING Last administered on 09/24/17 22:37; Admin Dose 4 MG; Start 09/23/17 at 23:30 Acetaminophen (Tylenol Tab) 650 mg Q6H PRN PO PAIN LEVEL 1-3 OR FEVER; Start 09/23/17 at 23:30 Morphine Sulfate (morphine) 2 mg Q4H PRN IV SEVERE PAIN LEVEL 7-10 Last administered on 09/23/17 23:48; Admin Dose 2 MG; Start 09/23/17 at 23:30 Famotidine (Pepcid) 20 mg Q12 PO Last administered on 09/25/17 08:56; Admin Dose 20 MG; Start 09/24/17 at 09:00 Ascorbic Acid (Vitamin C) 500 mg BID PO Last administered on 09/25/17 08:57; Admin Dose 500 MG; Start 09/24/17 at 09:00 Bicalutamide (Casodex) 50 mg DAILY PO Last administered on 09/25/17 08:59; Admin Dose 50 MG; Start 09/24/17 at 09:00 Duloxetine HCl (Cymbalta) 20 mg DAILY PO Last administered on 09/25/17 08:57; Admin Dose 20 MG; Start 09/24/17 at 09:00 Enalapril Maleate (Vasotec) 10 mg DAILY PO Last administered on 09/25/17 08:57 ; Admin Dose 10 MG; Start 09/24/17 at 09:00 Ferrous Sulfate (Ferrous Sulfate (Ec)) 325 mg BID PO Last administered on 08:57; Admin Dose 325 MG; Start 09/24/17 at 09:00 Atorvastatin Calcium (Lipitor) 20 mg DAILY@21 PO Last administered on 20:54; Admin Dose 20 MG; Start 09/24/17 at 21:00 Linagliptin (Tradjenta) 5 mg DAILY PO Last administered on 09/25/17 08:57; Admin Dose 5 MG; Start 09/24/17 at 09:00 Acetaminophen/ Hydrocodone Bitart 1 tab 1 tab Q4H PRN PO PAIN Last administered on 09/24/17 12:38; Admin Dose 1 TAB; Start 09/24/17 at 05:30 Vancomycin HCl 250 ml @ 125 mls/hr Q12H IVPB Last administered on 09/25/17 01 :15; Admin Dose 125 MLS/HR; Start 09/24/17 at 13:00 Piperacillin Sod/ Tazobactam Sod (Zosyn 3.375gm/ 50 ml (Pmx)) 50 ml @ 100 mls/ hr Q6 IVPB Last administered on 09/25/17 12:18; Admin Dose 100 MLS/HR; Start 09/24/17 at 12:00 Nystatin (Nystatin Cr) 1 applic BID TOP Last administered on 09/25/17 09:00; Admin Dose 1 APPLIC; Start 09/24/17 at 13:00 Miscellaneous Information (*Rx Drug Level Order Reminder*) VANCOMYCIN TROUGH ON 09/17... ONCE ONCE XX ; Start 09/26/17 at 00:00; Stop 09/26/17 at 00:01 Terazosin HCl (Hytrin) 10 mg HS PO Last administered on 09/24/17 23:33; Admin Dose 10 MG; Start 09/24/17 at 22:00 OLYA LOPEZ Sep 25, 2017 12:44
[2017-09-25] MEDS ORDERED: SOD CHLORIDE 0.9% IVPB ONE (14:00)
[2017-09-25] MEDS ORDERED: POTASSIUM PHOSPHATE IVPB ONE (14:00)
[2017-09-25 14:08] VITALS: BP 109/59; RESP 17
--- NOTE | 2017-09-25 15:52 | CONS ---
Date/Time of Note Date/Time of Note DATE: 09/25/17 TIME: 15:45 Assessment/Plan Assessment/Plan Chief Complaint/Hosp Course Dizziness after chemo Problems: Additional Assessment/Plan Patient is a 52-year-old male with a history of stage IV prostate cancer on chemo, hypertension, type 2 diabetes, dyslipidemia, depression, iron deficiency anemia. He was admitted due to abnormal lab values including anemia and leukopenia. He also reported generalized weakness and chronic total body irina. His initial evaluation showed him to have a hemoglobin of 7.2 and WBC of 1.7 and lactate of 3.3. He was started on chemotherapy about 2 months ago and since then he has been reporting daily dizziness. Movements have no change in frequency or severity of dizziness. CT scan of the brain showed mild atrophy, chronic white matter disease,right parasagittal retrocerebellar CSF space which may represent lupe cisterna magna versus arachnoid cyst. Neurological examination is nonfocal. My impression is that dizziness could be a side effect of his chemo medications. Would like to rule out benign positional vertigo. Plan 1 MRI of the brain 2.Start Meclizine 12.5 mg p.o. 3 times daily 3 we will follow Consultation Date/Type/Reason Admit Date/Time Sep 23, 2017 at 21:21 Date of Consultation: Sep 25, 2017 Type of Consultation: Neurology Reason for Consultation Dizziness Referring Provider: OLYA LOPEZ Hx of Present Illness Patient is a 52-year-old male with a history of stage IV prostate cancer on chemo, hypertension, type 2 diabetes, dyslipidemia, depression, iron deficiency anemia. He was admitted due to abnormal lab values including anemia and leukopenia. He also reported generalized weakness and chronic total body irina. His initial evaluation showed him to have a hemoglobin of 7.2 and WBC of 1.7 and lactate of 3.3. He was started on chemotherapy about 2 months ago and since then he has been reporting daily dizziness. Movements have no change in frequency or severity of dizziness. CT scan of the brain showed mild atrophy, chronic white matter disease,right parasagittal retrocerebellar CSF space which may represent lupe cisterna magna versus arachnoid cyst. Neurology consult was called to evaluate his neurological status. Constitutional: no complaints Eyes: no complaints ENT: no complaints Respiratory: no complaints Cardiovascular: no complaints Gastrointestinal: no complaints Genitourinary: no complaints Musculoskeletal: no complaints Skin: no complaints Neurologic: dizziness Endocrine: no complaints Lymphatic: no complaints Psychological: no complaints Immunologic: no complaints Past Medical History Medical History: diabetes, hypertension Social History Smoking Status: Never smoker Exam/Review of Systems Vital Signs Vitals Vital Signs Date Time Temp Pulse Resp B/P Pulse Ox O2 Delivery O2 Flow Rate FiO2 09/25/17 14:08 97.7 85 17 109/59 98 09/24/17 05:00 Room Air Intake and Output 09/24/17 09/24/17 09/25/17 15:00 23:00 07:00 Intake Total 290 ml 1040 ml 1300 ml Balance 290 ml 1040 ml 1300 ml Exam Constitutional: alert, oriented, well developed Psych: nl mood/affect, no complaints Head: atraumatic, normocephalic Eyes: EOMI, nl conjunctiva, nl lids, nl sclera ENMT: mucosa pink and moist, nl external ears & nose, nl lips & teeth, nl nasal mucosa & septum Neck: non-tender, supple Respiratory: clear to auscultation, normal air movement Cardiovascular: nl pulses, regular rate and rhythm Gastrointestinal: nl liver, spleen, non-tender, soft Musculoskeletal: nl extremities to inspection Extremities: normal pulses 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, nl mental status, nl speech, nl strength Lymph: nl lymph nodes Results Result Diagram: 09/25/174 09/25/17433 Results 24 hrs Laboratory Tests Test 09/25/17 04:34 09/25/17 06:59 White Blood Count 4.4 #L Red Blood Count 3.03 L Hemoglobin 8.7 L Hematocrit 26.6 L Mean Corpuscular Volume 87.8 Mean Corpuscular Hemoglobin 28.7 L Mean Corpuscular Hemoglobin Concent 32.7 Red Cell Distribution Width 17.2 H Platelet Count 146 Mean Platelet Volume 10.0 Neutrophils % Segmented Neutrophils % (Manual) 44 Band Neutrophils % (Manual) 22 H Lymphocytes % Lymphocytes % (Manual) 16 Monocytes % Monocytes % (Manual) 16 H Eosinophils % Eosinophils % (Manual) 2 Basophils % Nucleated Red Blood Cells % 1 H Neutrophils # Neutrophils # (Manual) 2.0 Band Neutrophils # 0.9 H Absolute Lymphocytes (Manual) 0.7 L Lymphocytes # Monocytes # Absolute Monocytes (Manual) 0.7 Eosinophils # Basophils # Nucleated Red Blood Cells # Platelet Estimate NORMAL Giant Platelets 2 H Polychromasia 3+ Poikilocytosis 1+ Anisocytosis 3+ Microcytosis 3+ Sodium Level 142 Potassium Level 3.5 Chloride Level 113 H Carbon Dioxide Level 23 Anion Gap 10 Blood Urea Nitrogen 5 L Creatinine 1.01 Glucose Level 71 Lactic Acid Level 1.4 Calcium Level 8.1 L Phosphorus Level 1.0 L Magnesium Level 2.2 Lab Scanned Report BLOOD TRANSFUSION Medications Medications Current Medications Ondansetron HCl (Zofran Inj) 4 mg Q6H PRN IV NAUSEA AND/OR VOMITING Last administered on 09/24/17 22:37; Admin Dose 4 MG; Start 09/23/17 at 23:30 Acetaminophen (Tylenol Tab) 650 mg Q6H PRN PO PAIN LEVEL 1-3 OR FEVER; Start 09/23/17 at 23:30 Morphine Sulfate (morphine) 2 mg Q4H PRN IV SEVERE PAIN LEVEL 7-10 Last administered on 09/23/17 23:48; Admin Dose 2 MG; Start 09/23/17 at 23:30 Famotidine (Pepcid) 20 mg Q12 PO Last administered on 09/25/17 08:56; Admin Dose 20 MG; Start 09/24/17 at 09:00 Ascorbic Acid (Vitamin C) 500 mg BID PO Last administered on 09/25/17 08:57; Admin Dose 500 MG; Start 09/24/17 at 09:00 Bicalutamide (Casodex) 50 mg DAILY PO Last administered on 09/25/17 08:59; Admin Dose 50 MG; Start 09/24/17 at 09:00 Duloxetine HCl (Cymbalta) 20 mg DAILY PO Last administered on 09/25/17 08:57; Admin Dose 20 MG; Start 09/24/17 at 09:00 Enalapril Maleate (Vasotec) 10 mg DAILY PO Last administered on 09/25/17 08:57 ; Admin Dose 10 MG; Start 09/24/17 at 09:00 Ferrous Sulfate (Ferrous Sulfate (Ec)) 325 mg BID PO Last administered on 08:57; Admin Dose 325 MG; Start 09/24/17 at 09:00 Atorvastatin Calcium (Lipitor) 20 mg DAILY@21 PO Last administered on 20:54; Admin Dose 20 MG; Start 09/24/17 at 21:00 Linagliptin (Tradjenta) 5 mg DAILY PO Last administered on 09/25/17 08:57; Admin Dose 5 MG; Start 09/24/17 at 09:00 Acetaminophen/ Hydrocodone Bitart 1 tab 1 tab Q4H PRN PO PAIN Last administered on 09/24/17 12:38; Admin Dose 1 TAB; Start 09/24/17 at 05:30 Vancomycin HCl 250 ml @ 125 mls/hr Q12H IVPB Last administered on 09/25/17 13 :30; Admin Dose 125 MLS/HR; Start 09/24/17 at 13:00 Piperacillin Sod/ Tazobactam Sod (Zosyn 3.375gm/ 50 ml (Pmx)) 50 ml @ 100 mls/ hr Q6 IVPB Last administered on 09/25/17 12:18; Admin Dose 100 MLS/HR; Start 09/24/17 at 12:00 Nystatin (Nystatin Cr) 1 applic BID TOP Last administered on 09/25/17 09:00; Admin Dose 1 APPLIC; Start 09/24/17 at 13:00 Miscellaneous Information (*Rx Drug Level Order Reminder*) VANCOMYCIN TROUGH ON 09/17... ONCE ONCE XX ; Start 09/26/17 at 00:00; Stop 09/26/17 at 00:01 Terazosin HCl 10 mg 10 mg HS PO Last administered on 09/24/17 23:33; Admin Dose 10 MG; Start 09/24/17 at 22:00 Potassium Phosphate/Sodium Chloride (K Phos (Meq)/NS) 250 ml @ 62.5 mls/hr ONCE ONCE IVPB ; Start 09/25/17 at 14:00; Stop 09/25/17 at 17:[address] scan of the brain 09/24/2017 IMPRESSION: 1. No acute intracranial hemorrhage, transcortical infarction or mass effect. If clinical concern persists consider brain MRI. 2. Mild mild chronic small vessel ischemic changes. 3. Prominent right parasagittal retrocerebellar CSF space which may represent lupe cisterna magna versus arachnoid cyst. 4. Mild generalized cerebral volume loss. 5. Moderate paranasal sinus disease with fluid levels in bilateral sphenoid sinuses. RPTAT: HFN .Saima Blevins MD, MD Date Time Electronically viewed and signed by .Saima Blevins MD, on 09/24/2017 15:56 LUCRECIA RODRIGES MD Sep 25, 2017 15:52
[2017-09-25 20:00] VITALS: BP 118/65; PULSE 67; RESP 18
[2017-09-25] MEDS: MECLIZINE 12.5 MG TAB PO SCH (21:25)
[2017-09-25] MEDS: ATORVASTATIN 20 MG TAB PO SCH (21:25)
[2017-09-25] MEDS: TERAZOSIN 5 MG CAP PO SCH (21:40)
[2017-09-26] MEDS: PIPER-TAZO 3.375 GM IV (PMX) 50 ML IVPB SCH ×5 (00:12→23:59)
[2017-09-26 00:17] VITALS: BP 107/62; PULSE 70; RESP 19
[2017-09-26 01:35] VITALS: BP 110/68; RESP 18
[2017-09-26] MEDS: VANCOMYCIN 1 GM (PMX) 250 ML IVPB SCH (02:02)
[2017-09-26 05:27] LABS: ABNORMAL IP MESSAGE 1; HEMATOCRIT 27.3 % (42.0-52.0); MEAN CORPUSCULAR HEMOGLOBIN 28.7 pg (29.0-33.0); MEAN CORPUSCULAR VOLUME 86.9 fl (82.0-101.0); NUCLEATED RED BLOOD CELLS% 1.3 /100WBC (0.0-0.0); PLATELET COUNT 179 10^3/UL (140-415); POSITIVE DIFF @See below; RED BLOOD COUNT 3.14 10^6/ul (4.70-6.10); RED CELL DISTRIBUTION WIDTH 17.1 % (11.5-14.5)
[2017-09-26 06:25] LABS: CALCIUM 8.1 mg/dl (8.4-10.2); CREATININE 1.06 mg/dl (0.61-1.24); MAGNESIUM 2.3 mg/dl (1.7-2.5); PHOSPHORUS 1.1 mg/dl (2.5-4.9)
[2017-09-26 06:27] LABS: POTASSIUM 2.9 mmol/L (3.5-5.1)
[2017-09-26] MEDS: POTASSIUM CHLORIDE (SR) 20 MEQ TAB PO SCH ×2 (07:07→11:31)
[2017-09-26 08:00] VITALS: BP 108/59; RESP 20
[2017-09-26 08:39] LABS: BASOPHIL # 0.1 10^3/ul (0.0-0.1); BASOPHILS % 0.8 % (0.0-2.0); EOSINOPHILS % 0.7 % (0.0-7.0); LYMPHOCYTES # 1.2 10^3/ul (0.8-2.9); MONOCYTE # 0.9 10^3/ul (0.3-0.9); MONOCYTES % 15.5 % (0.0-11.0); NEUTROPHIL # 3.4 10^3/ul (1.6-7.5); NEUTROPHILS % 56.7 % (39.0-77.0); NUCLEATED RED BLOOD CELLS # 0.1 10^3/ul (0.0-0.0)
[2017-09-26] MEDS: ENALAPRIL 10 MG TAB PO SCH (09:41)
[2017-09-26] MEDS: FERROUS SULFATE (EC) 325 MG TAB PO SCH ×2 (09:41→20:11)
[2017-09-26] MEDS: ASCORBIC ACID 500 MG TAB PO SCH ×2 (09:41→20:12)
[2017-09-26] MEDS: FAMOTIDINE 20 MG TAB PO SCH ×2 (09:41→20:12)
[2017-09-26] MEDS: DULOXETINE 20 MG CAP DR PO SCH (09:41)
[2017-09-26] MEDS: MECLIZINE 12.5 MG TAB PO SCH ×3 (09:41→20:11)
[2017-09-26] MEDS: LINAGLIPTIN 5 MG TABLET PO SCH (09:41)
[2017-09-26] MEDS: BICALUTAMIDE 50 MG TAB PO SCH (09:46)
[2017-09-26] MEDS: NYSTATIN 15 GM CR TOP SCH ×2 (09:47→20:13)
[2017-09-26 10:24] LABS: ANISOCYTOSIS 2+ (0-0); BASOPHILS % (M) 1 % (0-2); EOSINOPHILS % (M) 1 % (0-7); MICROCYTOSIS 2+ (0-0); MONOCYTES % (M) 13 % (0-11); PLATELET ESTIMATE NORMAL; POIKILOCYTOSIS 1+ (0-0); POLYCHROMASIA 3+ (0-0); REACTIVE LYMPHOCYTES% (M) 2 % (0-0)
--- NOTE | 2017-09-26 10:52 | CONS ---
Date/Time of Note Date/Time of Note DATE: 09/26/17 TIME: 10:51 Assessment/Plan Assessment/Plan Additional Assessment/Plan Chart reviewed brief conversation with patient and his . There are 2 daughters who are not here today may be available tomorrow for a family conference. At this time patient denies any pain I have told him my job is to function as communicated between his family and his primary care providers including as necessary his oncologist. I reviewed his medical records and look forward to meeting family members tomorrow and will dictate a more in detail palliative care note. Consultation Date/Type/Reason Admit Date/Time Sep 23, 2017 at 21:21 Past Medical History Medical History: diabetes, hypertension Social History Smoking Status: Never smoker Exam/Review of Systems Vital Signs Vitals Vital Signs Date Time Temp Pulse Resp B/P Pulse Ox O2 Delivery O2 Flow Rate FiO2 09/26/17 08:00 98.1 68 20 108/59 96 09/26/17 00:17 Room Air 09/25/17 21:30 21 Intake and Output 09/25/17 09/25/17 09/26/17 15:00 23:00 07:00 Intake Total 50 ml 1982 ml 850 ml Balance 50 ml 1982 ml 850 ml Results Result Diagram: 09/26/17 0444 09/26/17 0444 Results 24 hrs Laboratory Tests Test 09/26/17 00:27 09/26/17 04:44 Vancomycin Level Trough 15.9 White Blood Count 6.0 # Red Blood Count 3.14 L Hemoglobin 9.0 L Hematocrit 27.3 L Mean Corpuscular Volume 86.9 Mean Corpuscular Hemoglobin 28.7 L Mean Corpuscular Hemoglobin Concent 33.0 Red Cell Distribution Width 17.1 H Platelet Count 179 # Mean Platelet Volume 10.0 Neutrophils % 56.7 Segmented Neutrophils % (Manual) 43 Band Neutrophils % (Manual) 21 H Lymphocytes % 20.0 Lymphocytes % (Manual) 19 Reactive Lymphocytes % (Manual) 2 H Monocytes % 15.5 H Monocytes % (Manual) 13 H Eosinophils % 0.7 Eosinophils % (Manual) 1 Basophils % 0.8 Basophils % (Manual) 1 Nucleated Red Blood Cells % 1.3 H Neutrophils # 3.4 Neutrophils # (Manual) 2.7 Band Neutrophils # 1.2 H Absolute Lymphocytes (Manual) 1.1 Lymphocytes # 1.2 Reactive Lymphocytes # 0.1 H Monocytes # 0.9 Absolute Monocytes (Manual) 0.7 Eosinophils # 0.0 Basophils # 0.1 Basophils # (Manual) 0.0 Nucleated Red Blood Cells # 0.1 H Platelet Estimate NORMAL Polychromasia 3+ Poikilocytosis 1+ Anisocytosis 2+ Microcytosis 2+ Sodium Level 142 Potassium Level 2.9 *L Chloride Level 111 H Carbon Dioxide Level 25 Anion Gap 9 Blood Urea Nitrogen 8 Creatinine 1.06 Glucose Level 92 Calcium Level 8.1 L Phosphorus Level 1.1 L Magnesium Level 2.3 Medications Medications Current Medications Ondansetron HCl (Zofran Inj) 4 mg Q6H PRN IV NAUSEA AND/OR VOMITING Last administered on 09/24/17 22:37; Admin Dose 4 MG; Start 09/23/17 at 23:30 Acetaminophen (Tylenol Tab) 650 mg Q6H PRN PO PAIN LEVEL 1-3 OR FEVER; Start 09/23/17 at 23:30 Morphine Sulfate (morphine) 2 mg Q4H PRN IV SEVERE PAIN LEVEL 7-10 Last administered on 09/23/17 23:48; Admin Dose 2 MG; Start 09/23/17 at 23:30 Famotidine (Pepcid) 20 mg Q12 PO Last administered on 09/26/17 09:41; Admin Dose 20 MG; Start 09/24/17 at 09:00 Ascorbic Acid (Vitamin C) 500 mg BID PO Last administered on 09/26/17 09:41; Admin Dose 500 MG; Start 09/24/17 at 09:00 Bicalutamide (Casodex) 50 mg DAILY PO Last administered on 09/26/17 09:46; Admin Dose 50 MG; Start 09/24/17 at 09:00 Duloxetine HCl (Cymbalta) 20 mg DAILY PO Last administered on 09/26/17 09:41 ; Admin Dose 20 MG; Start 09/24/17 at 09:00 Enalapril Maleate (Vasotec) 10 mg DAILY PO Last administered on 09/26/17 09: 41; Admin Dose 10 MG; Start 09/24/17 at 09:00 Ferrous Sulfate (Ferrous Sulfate (Ec)) 325 mg BID PO Last administered on 09/26 09:41; Admin Dose 325 MG; Start 09/24/17 at 09:00 Atorvastatin Calcium (Lipitor) 20 mg DAILY@21 PO Last administered on 21:25; Admin Dose 20 MG; Start 09/24/17 at 21:00 Linagliptin (Tradjenta) 5 mg DAILY PO Last administered on 09/26/17 09:41; Admin Dose 5 MG; Start 09/24/17 at 09:00 Acetaminophen/ Hydrocodone Bitart 1 tab 1 tab Q4H PRN PO PAIN Last administered on 09/24/17 12:38; Admin Dose 1 TAB; Start 09/24/17 at 05:30 Piperacillin Sod/ Tazobactam Sod (Zosyn 3.375gm/ 50 ml (Pmx)) 50 ml @ 100 mls/ hr Q6 IVPB Last administered on 09/26/17 06:19; Admin Dose 100 MLS/HR; Start 09/24/17 at 12:00 Nystatin (Nystatin Cr) 1 applic BID TOP Last administered on 09/26/17 09:47; Admin Dose 1 APPLIC; Start 09/24/17 at 13:00 Terazosin HCl (Hytrin) 10 mg HS PO Last administered on 09/25/17 21:40; Admin Dose 10 MG; Start 09/24/17 at 22:00 Meclizine HCl 12.5 mg 12.5 mg TID PO Last administered on 09/26/17 09:41; Admin Dose 12.5 MG; Start 09/25/17 at 21:00 Vancomycin HCl/ Dextrose/Water (Vancocin/D5W) 150 ml @ 75 mls/hr Q12H IVPB ; Start 09/26/17 at 14:00 CATALINA HARRY Sep 26, 2017 10:52
[2017-09-26] MEDS ORDERED: POTASSIUM PHOSPHATE 20 MEQ in SOD CHLORIDE 0.9% 250 ML IVPB ONE (11:30)
--- NOTE | 2017-09-26 11:54 | PN ---
Date/Time of Note Date/Time of Note DATE: 09/26/17 TIME: 11:48 Assessment/Plan VTE Prophylaxis VTE Prophylaxis Intervention: SCD's Lines/Catheters IV Catheter Type (from [facility]): Peripheral IV Urinary Cath still in place: No Assessment/Plan Chief Complaint/Hosp Course Subjective 12.8 Patient has multiple complaints, however are chronic 12.9 feels slightly better today 12.10 feels okay, spoke with neurologist and palliative care Objective Physical exam General: Patient is laying in bed and answers questions appropriately Mentation: Patient is alert and oriented 4, Head: Normocephalic atraumatic Eyes: EOMI, pupils reactive to light Neck: Supple, nontender, midline Respiratory: Clear to auscultation bilaterally Cardiovascular: regular rate, no obvious murmurs Gastrointestinal: non-tender to palpation, bowel sounds heard. Neurological: Moves all extremities spontaneously Skin: mild erythematous rash on abdomen and thigh Assessment and plan Neutropenia and [place] -Patient's oncologist's office was called, however no one picked up, patient's son went to oncologist office and was told that he is aware of the patient's hospitalization -Was sent per oncologist for transfusion, received 2 units -uptrending wbc count and stable anemia, off neutropenic precautions -2/2 chemo and metastatic prostate cancer generalized weakness and dizziness -possible 2/2 sinusitis vs brain pathology -neurology recs appreciated -keep on abx, has been uptrending wbc Bilateral vision loss -Chronic, patient states that ever since he started chemotherapy (completed in nov 2016) his vision has been decreasing, currently very blurry on left eye, R eye having some mild issues, been present since nov of this year. Attempted to call ophthalmology, however no operations general agent steam meter reader available at this location, will monitor for acute vision changes. Told patient and that it is very important patient follow up with an steam meter reader immediately in the outpatient setting -Patient states that oncologist stated this was normal, very likely reaction to chemotherapy -CT head shows likely incidental findings of possible cyst, however will consult neurology, Dr. Garcia, MRI ordered per neurology recommendations, meclizine started, MRI down until 09/27/17. Abdominal dermatitis -Including thigh and buttock area -Possible fungal rash given neutropenic state -Nystatin cream UTI -Broad-spectrum antibiotics giving neutropenic state Stage IV prostate cancer -On chemo, finished in nov 2016 -Radiation therapy is pending for next year -Dr. Berumen is oncology Hypertension -Continue home meds as needed Diabetes -Insulin Disposition -neurology recs appreciated, MRI pending -Dr. Dan consulted, family meeting scheduled for 09/27/17 -Patient appears to have "fallen through the cracks" of medical care -neutropenia resolved, if stable and MRI WNL, DC to follow up with oncology and ophthalmology Problems: Exam/Review of Systems Vital Signs Vitals Vital Signs Date Time Temp Pulse Resp B/P Pulse Ox O2 Delivery O2 Flow Rate FiO2 09/26/17 08:00 98.1 68 20 108/59 96 09/26/17 00:17 Room Air 09/25/17 21:30 21 Intake and Output 09/25/17 09/25/17 09/26/17 15:00 23:00 07:00 Intake Total 50 ml 1982 ml 850 ml Balance 50 ml 1982 ml 850 ml Results Result Diagram: 09/26/17 0444 09/26/17 0444 Results 24 hrs Laboratory Tests Test 09/26/17 00:27 09/26/17 04:44 Vancomycin Level Trough 15.9 White Blood Count 6.0 # Red Blood Count 3.14 L Hemoglobin 9.0 L Hematocrit 27.3 L Mean Corpuscular Volume 86.9 Mean Corpuscular Hemoglobin 28.7 L Mean Corpuscular Hemoglobin Concent 33.0 Red Cell Distribution Width 17.1 H Platelet Count 179 # Mean Platelet Volume 10.0 Neutrophils % 56.7 Segmented Neutrophils % (Manual) 43 Band Neutrophils % (Manual) 21 H Lymphocytes % 20.0 Lymphocytes % (Manual) 19 Reactive Lymphocytes % (Manual) 2 H Monocytes % 15.5 H Monocytes % (Manual) 13 H Eosinophils % 0.7 Eosinophils % (Manual) 1 Basophils % 0.8 Basophils % (Manual) 1 Nucleated Red Blood Cells % 1.3 H Neutrophils # 3.4 Neutrophils # (Manual) 2.7 Band Neutrophils # 1.2 H Absolute Lymphocytes (Manual) 1.1 Lymphocytes # 1.2 Reactive Lymphocytes # 0.1 H Monocytes # 0.9 Absolute Monocytes (Manual) 0.7 Eosinophils # 0.0 Basophils # 0.1 Basophils # (Manual) 0.0 Nucleated Red Blood Cells # 0.1 H Platelet Estimate NORMAL Polychromasia 3+ Poikilocytosis 1+ Anisocytosis 2+ Microcytosis 2+ Sodium Level 142 Potassium Level 2.9 *L Chloride Level 111 H Carbon Dioxide Level 25 Anion Gap 9 Blood Urea Nitrogen 8 Creatinine 1.06 Glucose Level 92 Calcium Level 8.1 L Phosphorus Level 1.1 L Magnesium Level 2.3 Medications Medications Current Medications Ondansetron HCl (Zofran Inj) 4 mg Q6H PRN IV NAUSEA AND/OR VOMITING Last administered on 09/24/17 22:37; Admin Dose 4 MG; Start 09/23/17 at 23:30 Acetaminophen (Tylenol Tab) 650 mg Q6H PRN PO PAIN LEVEL 1-3 OR FEVER; Start 09/23/17 at 23:30 Morphine Sulfate (morphine) 2 mg Q4H PRN IV SEVERE PAIN LEVEL 7-10 Last administered on 09/23/17 23:48; Admin Dose 2 MG; Start 09/23/17 at 23:30 Famotidine (Pepcid) 20 mg Q12 PO Last administered on 09/26/17 09:41; Admin Dose 20 MG; Start 09/24/17 at 09:00 Ascorbic Acid (Vitamin C) 500 mg BID PO Last administered on 09/26/17 09:41; Admin Dose 500 MG; Start 09/24/17 at 09:00 Bicalutamide (Casodex) 50 mg DAILY PO Last administered on 09/26/17 09:46; Admin Dose 50 MG; Start 09/24/17 at 09:00 Duloxetine HCl (Cymbalta) 20 mg DAILY PO Last administered on 09/26/17 09:41 ; Admin Dose 20 MG; Start 09/24/17 at 09:00 Enalapril Maleate (Vasotec) 10 mg DAILY PO Last administered on 09/26/17 09: 41; Admin Dose 10 MG; Start 09/24/17 at 09:00 Ferrous Sulfate (Ferrous Sulfate (Ec)) 325 mg BID PO Last administered on 09/26 09:41; Admin Dose 325 MG; Start 09/24/17 at 09:00 Atorvastatin Calcium (Lipitor) 20 mg DAILY@21 PO Last administered on 21:25; Admin Dose 20 MG; Start 09/24/17 at 21:00 Linagliptin (Tradjenta) 5 mg DAILY PO Last administered on 09/26/17 09:41; Admin Dose 5 MG; Start 09/24/17 at 09:00 Acetaminophen/ Hydrocodone Bitart 1 tab 1 tab Q4H PRN PO PAIN Last administered on 09/24/17 12:38; Admin Dose 1 TAB; Start 09/24/17 at 05:30 Piperacillin Sod/ Tazobactam Sod (Zosyn 3.375gm/ 50 ml (Pmx)) 50 ml @ 100 mls/ hr Q6 IVPB Last administered on 09/26/17 11:31; Admin Dose 100 MLS/HR; Start 09/24/17 at 12:00 Nystatin (Nystatin Cr) 1 applic BID TOP Last administered on 09/26/17 09:47; Admin Dose 1 APPLIC; Start 09/24/17 at 13:00 Terazosin HCl (Hytrin) 10 mg HS PO Last administered on 09/25/17 21:40; Admin Dose 10 MG; Start 09/24/17 at 22:00 Meclizine HCl 12.5 mg 12.5 mg TID PO Last administered on 09/26/17 09:41; Admin Dose 12.5 MG; Start 09/25/17 at 21:00 Vancomycin HCl 750 mg/Dextrose/ Water 150 ml @ 75 mls/hr Q12H IVPB ; Start 08/03 at 14:00 Potassium Phosphate/Sodium Chloride (K Phos (Meq)/NS) 254.5455 ml @ 63.636 m... ONCE ONCE IVPB ; Start 09/26/17 at 11:30; Stop 09/26/17 at 15:29 OLYA LOPEZ Sep 26, 2017 11:54
[2017-09-26 14:03] LABS: CALCIUM 8.1 mg/dl (8.4-10.2); CREATININE 1.05 mg/dl (0.61-1.24); POTASSIUM 3.5 mmol/L (3.5-5.1)
[2017-09-26] MEDS: VANCOMYCIN 750 MG in DEXTROSE 5% 150 ML IVPB SCH (14:09)
--- NOTE | 2017-09-26 14:47 | CONS ---
Date/Time of Note Date/Time of Note DATE: 09/26/17 TIME: 14:46 Assessment/Plan Assessment/Plan Chief Complaint/Hosp Course Dizziness after chemo Problems: Additional Assessment/Plan Patient is a 52-year-old male with a history of stage IV prostate cancer on chemo, hypertension, type 2 diabetes, dyslipidemia, depression, iron deficiency anemia. He was admitted due to abnormal lab values including anemia and leukopenia. He also reported generalized weakness and chronic total body irina. His initial evaluation showed him to have a hemoglobin of 7.2 and WBC of 1.7 and lactate of 3.3. He was started on chemotherapy about 2 months ago and since then he has been reporting daily dizziness. Movements have no change in frequency or severity of dizziness. CT scan of the brain showed mild atrophy, chronic white matter disease,right parasagittal retrocerebellar CSF space which may represent lupe cisterna magna versus arachnoid cyst. Neurological examination is nonfocal. My impression is that dizziness could be a side effect of his chemo medications. Would like to rule out benign positional vertigo. MRI of the brain is pending. He was started on meclizine which helped in his dizziness. Plan 1 MRI of the brain is pending 2. Continue meclizine 12.5 mg p.o. 3 times daily 3 we will follow Consultation Date/Type/Reason Admit Date/Time Sep 23, 2017 at 21:21 Initial Consult Date 09/25/17 Type of Consultation: Neurology Referring Provider: OLYA LOPEZ 24 HR Interval Summary Free Text/Dictation Improved his dizziness. MRI of the brain is pending Exam/Review of Systems Vital Signs Vitals Vital Signs Date Time Temp Pulse Resp B/P Pulse Ox O2 Delivery O2 Flow Rate FiO2 09/26/17 08:00 98.1 68 20 108/59 96 09/26/17 00:17 Room Air 09/25/17 21:30 21 Intake and Output 09/25/17 09/25/17 09/26/17 15:00 23:00 07:00 Intake Total 50 ml 1982 ml 850 ml Balance 50 ml 1982 ml 850 ml Exam Constitutional: alert, oriented, well developed Psych: nl mood/affect, no complaints Head: atraumatic, normocephalic Eyes: EOMI, nl conjunctiva, nl lids, nl sclera ENMT: mucosa pink and moist, nl external ears & nose, nl lips & teeth, nl nasal mucosa & septum Neck: non-tender, supple Respiratory: clear to auscultation, normal air movement Cardiovascular: nl pulses, regular rate and rhythm Gastrointestinal: nl liver, spleen, non-tender, soft Neurological: [employer] II-XII intact, nl mental status, nl speech, nl strength Results Result Diagram: 09/26/17 0444 09/26/17 1335 Results 24 hrs Laboratory Tests Test 09/26/17 00:27 09/26/17 04:44 09/26/17 13:35 Vancomycin Level Trough 15.9 White Blood Count 6.0 # Red Blood Count 3.14 L Hemoglobin 9.0 L Hematocrit 27.3 L Mean Corpuscular Volume 86.9 Mean Corpuscular Hemoglobin 28.7 L Mean Corpuscular Hemoglobin Concent 33.0 Red Cell Distribution Width 17.1 H Platelet Count 179 # Mean Platelet Volume 10.0 Neutrophils % 56.7 Segmented Neutrophils % (Manual) 43 Band Neutrophils % (Manual) 21 H Lymphocytes % 20.0 Lymphocytes % (Manual) 19 Reactive Lymphocytes % (Manual) 2 H Monocytes % 15.5 H Monocytes % (Manual) 13 H Eosinophils % 0.7 Eosinophils % (Manual) 1 Basophils % 0.8 Basophils % (Manual) 1 Nucleated Red Blood Cells % 1.3 H Neutrophils # 3.4 Neutrophils # (Manual) 2.7 Band Neutrophils # 1.2 H Absolute Lymphocytes (Manual) 1.1 Lymphocytes # 1.2 Reactive Lymphocytes # 0.1 H Monocytes # 0.9 Absolute Monocytes (Manual) 0.7 Eosinophils # 0.0 Basophils # 0.1 Basophils # (Manual) 0.0 Nucleated Red Blood Cells # 0.1 H Platelet Estimate NORMAL Polychromasia 3+ Poikilocytosis 1+ Anisocytosis 2+ Microcytosis 2+ Sodium Level 142 142 Potassium Level 2.9 *L 3.5 Chloride Level 111 H 111 H Carbon Dioxide Level 25 26 Anion Gap 9 9 Blood Urea Nitrogen 8 7 Creatinine 1.06 1.05 Glucose Level 92 127 Calcium Level 8.1 L 8.1 L Phosphorus Level 1.1 L Magnesium Level 2.3 Medications Medications Current Medications Ondansetron HCl (Zofran Inj) 4 mg Q6H PRN IV NAUSEA AND/OR VOMITING Last administered on 09/24/17t 22:37; Admin Dose 4 MG; Start 09/23/17 at 23:30 Acetaminophen (Tylenol Tab) 650 mg Q6H PRN PO PAIN LEVEL 1-3 OR FEVER; Start 09/23/17 at 23:30 Morphine Sulfate (morphine) 2 mg Q4H PRN IV SEVERE PAIN LEVEL 7-10 Last administered on 09/23/17 23:48; Admin Dose 2 MG; Start 09/23/17 at 23:30 Famotidine (Pepcid) 20 mg Q12 PO Last administered on 09/26/17 09:41; Admin Dose 20 MG; Start 09/24/17 at 09:00 Ascorbic Acid (Vitamin C) 500 mg BID PO Last administered on 09/26/17 09:41; Admin Dose 500 MG; Start 09/24/17 at 09:00 Bicalutamide (Casodex) 50 mg DAILY PO Last administered on 09/26/17 09:46; Admin Dose 50 MG; Start 09/24/17 at 09:00 Duloxetine HCl (Cymbalta) 20 mg DAILY PO Last administered on 09/26/17 09:41 ; Admin Dose 20 MG; Start 09/24/17 at 09:00 Enalapril Maleate (Vasotec) 10 mg DAILY PO Last administered on 09/26/17 09: 41; Admin Dose 10 MG; Start 09/24/17 at 09:00 Ferrous Sulfate (Ferrous Sulfate (Ec)) 325 mg BID PO Last administered on 09/26 09:41; Admin Dose 325 MG; Start 09/24/17 at 09:00 Atorvastatin Calcium (Lipitor) 20 mg DAILY@21 PO Last administered on 21:25; Admin Dose 20 MG; Start 09/24/17 at 21:00 Linagliptin (Tradjenta) 5 mg DAILY PO Last administered on 09/26/17 09:41; Admin Dose 5 MG; Start 09/24/17 at 09:00 Acetaminophen/ Hydrocodone Bitart 1 tab 1 tab Q4H PRN PO PAIN Last administered on 09/24/17 12:38; Admin Dose 1 TAB; Start 09/24/17 at 05:30 Piperacillin Sod/ Tazobactam Sod (Zosyn 3.375gm/ 50 ml (Pmx)) 50 ml @ 100 mls/ hr Q6 IVPB Last administered on 09/26/17 11:31; Admin Dose 100 MLS/HR; Start 09/24/17 at 12:00 Nystatin (Nystatin Cr) 1 applic BID TOP Last administered on 09/26/17 09:47; Admin Dose 1 APPLIC; Start 09/24/17 at 13:00 Terazosin HCl (Hytrin) 10 mg HS PO Last administered on 09/25/17 21:40; Admin Dose 10 MG; Start 09/24/17 at 22:00 Meclizine HCl 12.5 mg 12.5 mg TID PO Last administered on 09/26/17 12:27; Admin Dose 12.5 MG; Start 09/25/17 at 21:00 Vancomycin HCl 750 mg/Dextrose/ Water 150 ml @ 75 mls/hr Q12H IVPB Last administered on 09/26/17 14:09; Admin Dose 75 MLS/HR; Start 09/26/17 at 14:00 Potassium Phosphate/Sodium Chloride (K Phos (Meq)/NS) 254.5455 ml @ 63.636 m... ONCE ONCE IVPB Last administered on 09/26/17 12:27; Admin Dose 63.636 MLS/HR; Start 09/26/17 at 11:30; Stop 09/26/17 at 15:29 LUCRECIA RODRIGES MD Sep 26, 2017 14:47
[2017-09-26 14:48] VITALS: BP 118/65; RESP 20
[2017-09-26 20:05] VITALS: BP 110/60; RESP 18
[2017-09-26] MEDS: ATORVASTATIN 20 MG TAB PO SCH (20:11)
[2017-09-26] MEDS: TERAZOSIN 5 MG CAP PO SCH (20:12)
[2017-09-27 02:13] VITALS: BP 112/60; RESP 18
[2017-09-27] MEDS: VANCOMYCIN 750 MG in DEXTROSE 5% 150 ML IVPB SCH (02:15)
[2017-09-27 05:16] LABS: BASOPHIL # 0.1 10^3/ul (0.0-0.1); BASOPHILS % 0.6 % (0.0-2.0); EOSINOPHILS % 0.4 % (0.0-7.0); HEMATOCRIT 27.3 % (42.0-52.0); HEMOGLOBIN 8.8 g/dl (14.0-18.0); LYMPHOCYTES # 1.5 10^3/ul (0.8-2.9); LYMPHOCYTES % 18.6 % (15.0-51.0); MEAN CORPUSCULAR HEMOGLOBIN 28.3 pg (29.0-33.0); MEAN CORPUSCULAR HGB CONC 32.2 g/dl (32.0-37.0); MEAN CORPUSCULAR VOLUME 87.8 fl (82.0-101.0); MEAN PLATELET VOLUME 10.1 fl (7.4-10.4); MONOCYTES % 12.7 % (0.0-11.0); NEUTROPHIL # 5.1 10^3/ul (1.6-7.5); NEUTROPHILS % 64.6 % (39.0-77.0); NUCLEATED RED BLOOD CELLS # 0.1 10^3/ul (0.0-0.0); NUCLEATED RED BLOOD CELLS% 0.6 /100WBC (0.0-0.0); PLATELET COUNT 186 10^3/UL (140-415); POSITIVE DIFF @See below; RED BLOOD COUNT 3.11 10^6/ul (4.70-6.10); RED CELL DISTRIBUTION WIDTH 17.3 % (11.5-14.5); WHITE BLOOD COUNT 7.9 10^3/ul (4.8-10.8)
[2017-09-27 05:48] LABS: CREATININE 1.01 mg/dl (0.61-1.24); MAGNESIUM 2.3 mg/dl (1.7-2.5); PHOSPHORUS 1.1 mg/dl (2.5-4.9); POTASSIUM 3.4 mmol/L (3.5-5.1)
[2017-09-27] MEDS: PIPER-TAZO 3.375 GM IV (PMX) 50 ML IVPB SCH ×2 (06:39→13:15)
[2017-09-27 08:38] VITALS: BP 102/62; RESP 18
[2017-09-27] MEDS ORDERED: POTASSIUM CHLORIDE (SR) 20 MEQ TAB PO STA (08:45)
[2017-09-27] MEDS: NYSTATIN 15 GM CR TOP SCH ×2 (09:00→21:09)
[2017-09-27] MEDS: ENALAPRIL 10 MG TAB PO SCH (09:00)
[2017-09-27] MEDS: DULOXETINE 20 MG CAP DR PO SCH (09:50)
[2017-09-27] MEDS: MECLIZINE 12.5 MG TAB PO SCH ×3 (09:51→21:04)
[2017-09-27] MEDS: ASCORBIC ACID 500 MG TAB PO SCH ×2 (09:51→21:07)
[2017-09-27] MEDS: FERROUS SULFATE (EC) 325 MG TAB PO SCH ×2 (09:51→21:06)
[2017-09-27] MEDS: LINAGLIPTIN 5 MG TABLET PO SCH (09:51)
[2017-09-27] MEDS: FAMOTIDINE 20 MG TAB PO SCH ×2 (09:51→21:07)
[2017-09-27] MEDS: BICALUTAMIDE 50 MG TAB PO SCH (09:58)
--- NOTE | 2017-09-27 14:09 | PN ---
Date/Time of Note Date/Time of Note DATE: 09/27/17 TIME: 14:00 Assessment/Plan VTE Prophylaxis VTE Prophylaxis Intervention: SCD's Lines/Catheters IV Catheter Type (from [facility]): Peripheral IV Urinary Cath still in place: No Assessment/Plan Assessment/Plan 1. Pancytopenia 2/2 chemo and metastatic prostate cancer - Patient doing well and WBC, hemoglobin and platelets all trending up with no acute signs of bleeding - Sent by Oncologist for transfusion since found anemic - Followed by Dr. Berumen as outpatient for Oncology 2. Generalized weakness and dizziness- improving - possible 2/2 sinusitis vs brain pathology - neurology recs appreciated and awaiting MRI of brain which was delayed until today secondary to machine being down 3. Bilateral vision loss - Chronic, patient states that ever since he started chemotherapy (completed in nov 2016) his vision has been decreasing, currently very blurry on left eye, R eye having some mild issues, been present since nov of this year. No oncall copy coordinator available at this location, will monitor for acute vision changes. Told patient and that it is very important patient follow up with an copy coordinator immediately in the outpatient setting - Patient states that oncologist stated this was normal, very likely reaction to chemotherapy - CT head shows likely incidental findings of possible cyst. Neurology consultation appreciated and MRI ordered per neurology recommendations, meclizine started, MRI down until 09/27/17. 4. Abdominal dermatitis - Including thigh and buttock area - Possible fungal rash given neutropenic state - Nystatin cream 5. UTI - Broad-spectrum antibiotics giving neutropenic state - Culture shows most likely contamination 6. Stage IV prostate cancer - On chemo, finished in nov 2016 - Radiation therapy is pending for next year - Dr. Berumen is oncology 7. Hypertension - Stable - Continue home meds as needed 8. Diabetes Mellitus - well controlled, A1c 5.9 - continue on Tradjenta 9. Disposition - Awaiting MRI results and if normal will d/c home with plans for outpatient oncology and ophthalmology follow up - Dr. Dan consulted, family meeting scheduled for 09/27/17 Subjective 24 Hr Interval Summary Free Text/Dictation Patient states he's feeling better and walking with no issues. Denies any further episodes of dizziness. No acute overnight events. Awaiting MRI head Exam/Review of Systems Vital Signs Vitals Vital Signs Date Time Temp Pulse Resp B/P Pulse Ox O2 Delivery O2 Flow Rate FiO2 09/27/17 08:38 98.2 71 18 102/62 96 09/26/17 00:17 Room Air 09/25/17 21:30 21 Intake and Output 09/26/17 09/26/17 09/27/17 15:00 23:00 07:00 Intake Total 200 ml 2100 ml 840 ml Balance 200 ml 2100 ml 840 ml Exam General: Ambulating around unit in no acute distress. awake and alert Mentation: Patient is alert and oriented 4, Head: Normocephalic atraumatic Eyes: EOMI, pupils reactive to light Neck: Supple, nontender, midline Respiratory: Clear to auscultation bilaterally. no wheezes or rhonchi Cardiovascular: regular rate and rhythm, no obvious murmurs Gastrointestinal: non-tender to palpation, bowel sounds heard. non distended. no rebound or guarding Neurological: Moves all extremities spontaneously Results Result Diagram: 09/27/17 0421 09/27/17 0421 Results 24 hrs Laboratory Tests Test 09/27/17 04:21 White Blood Count 7.9 # Red Blood Count 3.11 L Hemoglobin 8.8 L Hematocrit 27.3 L Mean Corpuscular Volume 87.8 Mean Corpuscular Hemoglobin 28.3 L Mean Corpuscular Hemoglobin Concent 32.2 Red Cell Distribution Width 17.3 H Platelet Count 186 Mean Platelet Volume 10.1 Neutrophils % 64.6 Lymphocytes % 18.6 Monocytes % 12.7 H Eosinophils % 0.4 Basophils % 0.6 Nucleated Red Blood Cells % 0.6 H Neutrophils # 5.1 Lymphocytes # 1.5 Monocytes # 1.0 H Eosinophils # 0.0 Basophils # 0.1 Nucleated Red Blood Cells # 0.1 H Sodium Level 143 Potassium Level 3.4 L Chloride Level 110 Carbon Dioxide Level 25 Anion Gap 11 Blood Urea Nitrogen 6 L Creatinine 1.01 Glucose Level 144 Calcium Level 8.0 L Phosphorus Level 1.1 L Magnesium Level 2.3 Medications Medications Current Medications Ondansetron HCl (Zofran Inj) 4 mg Q6H PRN IV NAUSEA AND/OR VOMITING Last administered on 09/24/17t 22:37; Admin Dose 4 MG; Start 09/23/17 at 23:30 Acetaminophen (Tylenol Tab) 650 mg Q6H PRN PO PAIN LEVEL 1-3 OR FEVER; Start 09/23/17 at 23:30 Morphine Sulfate (morphine) 2 mg Q4H PRN IV SEVERE PAIN LEVEL 7-10 Last administered on 09/23/17 23:48; Admin Dose 2 MG; Start 09/23/17 at 23:30 Famotidine (Pepcid) 20 mg Q12 PO Last administered on 09/27/17 09:51; Admin Dose 20 MG; Start 09/24/17 at 09:00 Ascorbic Acid (Vitamin C) 500 mg BID PO Last administered on 09/27/17 09:51; Admin Dose 500 MG; Start 09/24/17 at 09:00 Bicalutamide (Casodex) 50 mg DAILY PO Last administered on 09/27/17 09:58; Admin Dose 50 MG; Start 09/24/17 at 09:00 Duloxetine HCl (Cymbalta) 20 mg DAILY PO Last administered on 09/27/17 09:50 ; Admin Dose 20 MG; Start 09/24/17 at 09:00 Enalapril Maleate (Vasotec) 10 mg DAILY PO Last administered on 09/26/17 09: 41; Admin Dose 10 MG; Start 09/24/17 at 09:00 Ferrous Sulfate (Ferrous Sulfate (Ec)) 325 mg BID PO Last administered on 09/27 09:51; Admin Dose 325 MG; Start 09/24/17 at 09:00 Atorvastatin Calcium (Lipitor) 20 mg DAILY@21 PO Last administered on 20:11; Admin Dose 20 MG; Start 09/24/17 at 21:00 Linagliptin (Tradjenta) 5 mg DAILY PO Last administered on 09/27/17 09:51; Admin Dose 5 MG; Start 09/24/17 at 09:00 Acetaminophen/ Hydrocodone Bitart 1 tab 1 tab Q4H PRN PO PAIN Last administered on 09/24/17 12:38; Admin Dose 1 TAB; Start 09/24/17 at 05:30 Piperacillin Sod/ Tazobactam Sod (Zosyn 3.375gm/ 50 ml (Pmx)) 50 ml @ 100 mls/ hr Q6 IVPB Last administered on 09/27/17 13:15; Admin Dose 100 MLS/HR; Start 09/24/17 at 12:00 Nystatin (Nystatin Cr) 1 applic BID TOP Last administered on 09/26/17 20:13; Admin Dose 1 APPLIC; Start 09/24/17 at 13:00 Terazosin HCl (Hytrin) 10 mg HS PO Last administered on 09/26/17 20:12; Admin Dose 10 MG; Start 09/24/17 at 22:00 Meclizine HCl 12.5 mg 12.5 mg TID PO Last administered on 09/27/17 13:15; Admin Dose 12.5 MG; Start 09/25/17 at 21:00 Vancomycin HCl/ Dextrose/Water (Vancocin/D5W) 150 ml @ 75 mls/hr Q12H IVPB Last administered on 09/27/17 02:15; Admin Dose 75 MLS/HR; Start 09/26/17 at 14:00 YANET CHARLTON MD Sep 27, 2017 14:09
[2017-09-27 16:00] VITALS: BP 110/72; RESP 20
[2017-09-27 20:28] VITALS: BP 126/74; RESP 18
[2017-09-27] MEDS: TERAZOSIN 5 MG CAP PO SCH (21:05)
[2017-09-27] MEDS: ATORVASTATIN 20 MG TAB PO SCH (21:07)
[2017-09-28 02:55] VITALS: BP 123/75; RESP 20
[2017-09-28 05:03] LABS: ABNORMAL IP MESSAGE 1; BASOPHIL # 0.1 10^3/ul (0.0-0.1); BASOPHILS % 0.7 % (0.0-2.0); EOSINOPHILS % 0.4 % (0.0-7.0); HEMOGLOBIN 8.9 g/dl (14.0-18.0); LYMPHOCYTES # 1.3 10^3/ul (0.8-2.9); LYMPHOCYTES % 18.3 % (15.0-51.0); MEAN CORPUSCULAR HEMOGLOBIN 28.8 pg (29.0-33.0); MEAN CORPUSCULAR VOLUME 87.4 fl (82.0-101.0); MEAN PLATELET VOLUME 9.6 fl (7.4-10.4); MONOCYTE # 0.8 10^3/ul (0.3-0.9); MONOCYTES % 11.4 % (0.0-11.0); NEUTROPHIL # 4.6 10^3/ul (1.6-7.5); NEUTROPHILS % 62.9 % (39.0-77.0); NUCLEATED RED BLOOD CELLS% 0.5 /100WBC (0.0-0.0); PLATELET COUNT 183 10^3/UL (140-415); POSITIVE DIFF @See below; RED BLOOD COUNT 3.09 10^6/ul (4.70-6.10); RED CELL DISTRIBUTION WIDTH 17.2 % (11.5-14.5); WHITE BLOOD COUNT 7.3 10^3/ul (4.8-10.8)
[2017-09-28 05:36] LABS: CALCIUM 8.2 mg/dl (8.4-10.2); CREATININE 0.92 mg/dl (0.61-1.24); MAGNESIUM 2.3 mg/dl (1.7-2.5); PHOSPHORUS 1.3 mg/dl (2.5-4.9); POTASSIUM 3.3 mmol/L (3.5-5.1)
[2017-09-28] MEDS ORDERED: POTASSIUM PHOSPHATE 40 MEQ in SOD CHLORIDE 0.9% 250 ML IVPB ONE (07:45)
[2017-09-28 08:23] VITALS: BP 119/74; RESP 18
[2017-09-28] MEDS: MECLIZINE 12.5 MG TAB PO SCH (08:42)
[2017-09-28] MEDS: DULOXETINE 20 MG CAP DR PO SCH (08:42)
[2017-09-28] MEDS: FAMOTIDINE 20 MG TAB PO SCH (08:43)
[2017-09-28] MEDS: FERROUS SULFATE (EC) 325 MG TAB PO SCH (08:43)
[2017-09-28] MEDS: LINAGLIPTIN 5 MG TABLET PO SCH (08:43)
[2017-09-28] MEDS: ENALAPRIL 10 MG TAB PO SCH (08:44)
[2017-09-28] MEDS: ASCORBIC ACID 500 MG TAB PO SCH (08:44)
[2017-09-28] MEDS: NYSTATIN 15 GM CR TOP SCH (08:44)
[2017-09-28] MEDS: BICALUTAMIDE 50 MG TAB PO SCH (08:49)
[2017-09-28] MEDS ORDERED: POTASSIUM CHLORIDE (SR) 20 MEQ TAB PO STA (09:18)
--- NOTE | 2017-09-28 09:32 | PN ---
Date/Time of Note Date/Time of Note DATE: 09/28/17 TIME: 09:26 Assessment/Plan VTE Prophylaxis VTE Prophylaxis Intervention: SCD's Lines/Catheters IV [facility] Urinary Cath still in place: No Assessment/Plan Assessment/Plan 1. Pancytopenia 2/2 chemo and metastatic prostate cancer - Patient doing well and WBC, hemoglobin and platelets all remain stable - Sent by Oncologist for transfusion since found anemic - Followed by Dr. Berumen as outpatient for Oncology 2. Generalized weakness and dizziness- improving - possible 2/2 sinusitis vs brain pathology - neurology recs appreciated and awaiting MRI of brain which was delayed until today secondary to machine being down. Patient would like to complete workup as outpatient given patient is feeling better and symptoms have no progressively worsened. Explained risks and patient still requesting outpatient MRI. 3. Bilateral vision loss - Chronic, patient states that ever since he started chemotherapy (completed in nov 2016) his vision has been decreasing, currently blurry in left eye and R eye having some mild issues. Remains stable. Discussed need to follow up with PCP to arrange for insurance analyst referral. - Patient states that oncologist stated this was normal, very likely reaction to chemotherapy - CT head shows likely incidental findings of possible cyst. Neurology consultation appreciated and MRI ordered per neurology recommendations, meclizine started, MRI down 4. Abdominal dermatitis - Including thigh and buttock area - Possible fungal rash given neutropenic state - Nystatin cream 5. UTI - Broad-spectrum antibiotics giving neutropenic state - Culture shows most likely contamination. no antibiotics needed 6. Stage IV prostate cancer - On chemo, finished in nov 2016 - Radiation therapy is pending for next year - Dr. Berumen is oncology 7. Hypertension - Stable - Continue home meds as needed 8. Diabetes Mellitus - well controlled, A1c 5.9 - continue on Tradjenta 9. Disposition - Patient condition remains stable and no acute changes in vision and no longer experiencing dizziness on meclizine - Will have MRI performed as outpatient - Medically stable for discharge home Subjective 24 Hr Interval Summary Free Text/Dictation Patient doing well and has no new complaints. no acute overnight events. Getting frustrated since waiting in the hospital for the MRI and machine is still down. Patient has a primary care physician to follow up with and requesting to have MRI performed as outpatient. Exam/Review of Systems Vital Signs Vitals Vital Signs Date Time Temp Pulse Resp B/P Pulse Ox O2 Delivery O2 Flow Rate FiO2 09/28/17 08:23 98.0 73 18 119/74 94 09/26/17 00:17 Room Air 09/25/17 21:30 21 Intake and Output 09/27/17 09/27/17 09/28/17 15:00 23:00 07:00 Intake Total 750 ml 460 ml Balance 750 ml 460 ml Exam General: Laying in bed in no acute distress. slightly frustrated but cooperative. awake and alert Mentation: Patient is alert and oriented 4, Head: Normocephalic atraumatic Eyes: EOMI, pupils reactive to light Neck: Supple, nontender, midline Respiratory: Clear to auscultation bilaterally. no wheezes or rhonchi Cardiovascular: regular rate and rhythm, no obvious murmurs Gastrointestinal: non-tender to palpation, bowel sounds heard. non distended. no rebound or guarding Neurological: Moves all extremities spontaneously Results Result Diagram: 09/28/17 0418 09/28/17 0418 Results 24 hrs Laboratory Tests Test 09/28/17 04:18 White Blood Count 7.3 Red Blood Count 3.09 L Hemoglobin 8.9 L Hematocrit 27.0 L Mean Corpuscular Volume 87.4 Mean Corpuscular Hemoglobin 28.8 L Mean Corpuscular Hemoglobin Concent 33.0 Red Cell Distribution Width 17.2 H Platelet Count 183 Mean Platelet Volume 9.6 Neutrophils % 62.9 Lymphocytes % 18.3 Monocytes % 11.4 H Eosinophils % 0.4 Basophils % 0.7 Nucleated Red Blood Cells % 0.5 H Neutrophils # 4.6 Lymphocytes # 1.3 Monocytes # 0.8 Eosinophils # 0.0 Basophils # 0.1 Nucleated Red Blood Cells # 0.0 Sodium Level 142 Potassium Level 3.3 L Chloride Level 109 Carbon Dioxide Level 27 Anion Gap 9 Blood Urea Nitrogen 6 L Creatinine 0.92 Glucose Level 109 Calcium Level 8.2 L Phosphorus Level 1.3 L Magnesium Level 2.3 Albumin 3.0 L Medications Medications Current Medications Ondansetron HCl (Zofran Inj) 4 mg Q6H PRN IV NAUSEA AND/OR VOMITING Last administered on 09/24/17t 22:37; Admin Dose 4 MG; Start 09/23/17 at 23:30 Acetaminophen (Tylenol Tab) 650 mg Q6H PRN PO PAIN LEVEL 1-3 OR FEVER; Start 09/23/17 at 23:30 Morphine Sulfate (morphine) 2 mg Q4H PRN IV SEVERE PAIN LEVEL 7-10 Last administered on 09/23/17 23:48; Admin Dose 2 MG; Start 09/23/17 at 23:30 Famotidine (Pepcid) 20 mg Q12 PO Last administered on 09/28/17 08:43; Admin Dose 20 MG; Start 09/24/17 at 09:00 Ascorbic Acid (Vitamin C) 500 mg BID PO Last administered on 09/28/17 08:44; Admin Dose 500 MG; Start 09/24/17 at 09:00 Bicalutamide (Casodex) 50 mg DAILY PO Last administered on 09/28/17 08:49; Admin Dose 50 MG; Start 09/24/17 at 09:00 Duloxetine HCl (Cymbalta) 20 mg DAILY PO Last administered on 09/28/17 08:42 ; Admin Dose 20 MG; Start 09/24/17 at 09:00 Enalapril Maleate (Vasotec) 10 mg DAILY PO Last administered on 09/28/17 08: 44; Admin Dose 10 MG; Start 09/24/17 at 09:00 Ferrous Sulfate (Ferrous Sulfate (Ec)) 325 mg BID PO Last administered on 09/28 08:43; Admin Dose 325 MG; Start 09/24/17 at 09:00 Atorvastatin Calcium (Lipitor) 20 mg DAILY@21 PO Last administered on 21:07; Admin Dose 20 MG; Start 09/24/17 at 21:00 Linagliptin (Tradjenta) 5 mg DAILY PO Last administered on 09/28/17 08:43; Admin Dose 5 MG; Start 09/24/17 at 09:00 Acetaminophen/ Hydrocodone Bitart ([place] (10/325)) 1 tab Q4H PRN PO PAIN Last administered on 09/24/17 12:38; Admin Dose 1 TAB; Start 09/24/17 at 05:30 Nystatin (Nystatin Cr) 1 applic BID TOP Last administered on 09/28/17 08:44; Admin Dose 1 APPLIC; Start 09/24/17 at 13:00 Terazosin HCl (Hytrin) 10 mg HS PO Last administered on 09/27/17 21:05; Admin Dose 10 MG; Start 09/24/17 at 22:00 Meclizine HCl (Antivert) 12.5 mg TID PO Last administered on 09/28/17 08:42; Admin Dose 12.5 MG; Start 09/25/17 at 21:00 YANET CHARLTON MD Sep 28, 2017 09:32
[2017-09-28] MEDS ORDERED: FER325 PO (09:34)
[2017-09-28] MEDS ORDERED: MECL12.574 PO (09:34)
[2017-09-28] MEDS ORDERED: NYST15CR28 TOP (09:34)
--- NOTE | 2017-09-28 09:40 | PDOCDIS ---
Discharge Instructions DIAGNOSIS Discharge Diagnosis 1. Pancytopenia 2/2 chemotherapy and metastatic prostate cancer- resolved 2. Generalized weakness and dizziness- improved 3. Bilateral vision loss, chronic 4. Abdominal dermatitis 5. Stage IV prostate cancer 6. Hypertension- controlled 7. Diabetes Mellitus- well controlled CONDITION Patient Condition: Fair HOME CARE INSTRUCTIONS: Diet Instructions: Low Fat /Cholesterol ACTIVITY: Activity Restrictions: No Restrictions FOLLOW UP/APPOINTMENTS Follow-up Plan 1. Follow up with your Primary care physician in 1- 2 weeks 2. Request a referral to an pipe stem sawyer from your PCP to evaluate your vision changes 3. You will need a MRI of the brain to assess the changes seen on CT brain 4. You would benefit from using a simple saline nasal rinse since CT showed sinusitis 5. Take Meclizine three times a day for dizziness 6. Follow up with your Oncologist as previously scheduled 7. Use the Nystatin cream on the areas where rash is present 8. If symptoms worsen, please return to the ED 1. seguimiento con patiño mdico de atencin primaria en 1-2 semanas 2. Solicite zayra referencia a un oftalmlogo de patiño PCP para evaluar los cambios en patiño visin 3. usted necesitar zayra IRM del cerebro para evaluar los cambios que se observan en el cerebro de CT 4. Usted se beneficiara de usar un enjuague nasal salino simple puesto que el CT demostr sinusitis 5. [place] meclizine lynnette veces al da para los mareos 6. seguimiento con patiño onclogo srikanth se program previamente 7. Use la crema de nistatina en las reas donde est presente la erupcin 8. Si los sntomas empeoran, por favor vuelva al Ed REFERRALS Other Referrals Alla Garcia MD Specialty: Neurology Office Address [address] [place] [address] Office YANET CHARLTON MD Sep 28, 2017 09:40
[2017-09-28] MEDS ORDERED: CANE1EAC26 MC (09:41)
--- NOTE | 2017-09-28 09:41 | DS ---
Date/Time of Note Date/Time of Note DATE: 09/28/17 TIME: 09:41 Discharge Summary Admission/Discharge Info Admit Date/Time Sep 23, 2017 at 21:21 Discharge Date/Time Discharge Diagnosis 1. Pancytopenia 2/2 chemotherapy and metastatic prostate cancer- resolved 2. Generalized weakness and dizziness- improved 3. Bilateral vision loss, chronic 4. Abdominal dermatitis 5. Stage IV prostate cancer 6. Hypertension- controlled 7. Diabetes Mellitus- well controlled Patient Condition: Fair Consults Palliative Neurology Procedures PROCEDURE: CT Brain without contrast. CLINICAL INDICATION: Decreased vision. TECHNIQUE: A CT of the brain without contrast was performed utilizing axial sections from the skull base through the vertex. One or more the following does reduction techniques were utilized: Automated exposure control, adjustment of the mA/ or kV according to patient's size, or use of iterative reconstruction technique. Total exam CTDIvol is 45.01 MGy and DLP is 720.23 mGy-cm. DICOM images are available. COMPARISON: None available. FINDINGS: The ventricles and sulci are mildly prominent indicative of volume loss. There is no intracranial hemorrhage, mass effect or midline shift. No abnormal intra- axial or extra-axial fluid collections are seen. The gomez/white matter differentiation is well preserved. There are mild foci of hypoattenuation in the white matter, which are nonspecific in etiology but likely reflect chronic small vessel ischemic changes. There is prominent retrocerebellar CSF space measuring 1.6 cm in AP diameter which may represent lupe cisterna magna versus arachnoid cyst. The visualized paranasal sinuses demonstrate moderate scattered mucosal thickening more pronounced in ethmoid air cells and sphenoid sinuses with associated fluid levels in bilateral sphenoid sinuses. IMPRESSION: 1. No acute intracranial hemorrhage, transcortical infarction or mass effect. If clinical concern persists consider brain MRI. 2. Mild mild chronic small vessel ischemic changes. 3. Prominent right parasagittal retrocerebellar CSF space which may represent lupe cisterna magna versus arachnoid cyst. 4. Mild generalized cerebral volume loss. 5. Moderate paranasal sinus disease with fluid levels in bilateral sphenoid sinuses. PROCEDURE: Portable chest x-ray. CLINICAL INDICATION: Sepsis. TECHNIQUE: Portable AP view of the chest. COMPARISON: None. FINDINGS: No pulmonary edema or consolidation is identified. The cardiac silhouette is magnified. No pleural effusion is seen. There is no pneumothorax. IMPRESSION: 1. No evidence of acute cardiopulmonary disease. Hx of Present Illness This is a 52-year-old male with a history of stage IV prostate cancer on chemo, hypertension, type 2 diabetes, dyslipidemia, depression, iron deficiency anemia. Patient was sent by his oncologist because of abnormal lab values including anemia and leukopenia. He complains of generalized weakness and chronic total body pain mainly back pain. Denied chest pain, shortness of breath, fever, chills, nausea or vomiting. When he presented to the ER he was found to have a hemoglobin of 7.2, WBC 1.7, potassium 3.4, initial lactate of 3.3 which trended down to 2.1 and alkaline phosphatase of 148. Urinalysis was consistent with UTI. His vitals have been stable. Hospital Course Patient was admitted for anemia and leukopenia. He was transfused 2 units of PRBC with improvement in his blood count. He was placed on neutropenic precautions and started on broad spectrum antibiotics. Patient was also complaining of visual changes that started after chemotherapy in november and was told was most likely a side effect of chemo medication. Efforts were made to reach an epoxy coatings installer but none children's institution attendant at the hospital and patient was instructed to follow up as an outpatient for further assessment. CT head was performed to assess if etiology was intracranial. Results revealed "Prominent right parasagittal retrocerebellar CSF space which may represent lupe cisterna magna versus arachnoid cyst" and Neurology consultation was placed for both CT results as well as patients complaints of dizziness. Patient was started on meclizine which relieves his dizziness and MRI of brain was ordered but was unable to be obtained due to the machine being down at the time. Patients conditions improved and hemoglobin remains stable. Home health services were arranged for patient as well. Patient was frustrated that his symptoms had improved and he was still waiting on the MRI machine. He requested to follow up as an outpatient for further workup instead. Patient was instructed to follow up with his primary care for referrals to an epoxy coatings installer and for MRI of brain. Patient was discharge home in stable condition. Home Meds Active Scripts Cane (Cane) 1 Each Each, 1 EACH MC DAILY, #1 Prov:YANET CHARLTON MD 09/28/17 Nystatin* (Nystatin*) 15 Gm Cr, 1 APPLIC TOP BID for 30 Days, #1 TUB Prov:YANET CHARLTON MD 09/28/17 Meclizine Hcl* (Antivert*) 12.5 Mg Tab, 12.5 MG PO TID for 30 Days, #90 TAB Prov:YANET CHARLTON MD 09/28/17 Ferrous Sulfate* (Ferrous Sulfate*) 325 Mg Tabec, 325 MG PO DAILY for 30 Days, # 30 TAB Prov:YANET CHARLTON MD 09/28/17 Reported Medications Terazosin Hcl* (Terazosin Hcl*) 10 Mg Capsule, 10 MG PO HS, CAP 09/24/17 Duloxetine Hcl* (Duloxetine Hcl*) 20 Mg Capsule.dr, 20 MG PO DAILY, #30 CAP 09/23/17 Simvastatin* (Zocor*) 40 Mg Tablet, 40 MG PO QHS, #30 TAB 09/23/17 Sitagliptin* (Januvia*) 100 Mg Tablet, 100 MG PO DAILY, #30 TAB 09/23/17 Metformin* (Glucophage*) 1,000 Mg Tablet, 1000 MG PO WITH BREAKFAST DINNE, #60 TAB 09/23/17 Bicalutamide* (Bicalutamide*) 50 Mg Tablet, 50 MG PO DAILY, TAB 09/23/17 Ascorbic Acid (Vitamin C) 500 Mg Tab, 500 MG PO BID, TAB 09/23/17 Glimepiride* (Glimepiride*) 4 Mg Tablet, 4 MG PO WITH BREAKFAST, TAB 09/23/17 Enalapril Maleate* (Enalapril Maleate*) 10 Mg Tablet, 10 MG PO DAILY, TAB 09/23/17 Follow-up Plan 1. Follow up with your Primary care physician in 1- 2 weeks 2. Request a referral to an epoxy coatings installer from your PCP to evaluate your vision changes 3. You will need a MRI of the brain to assess the changes seen on CT brain 4. You would benefit from using a simple saline nasal rinse since CT showed sinusitis 5. Take Meclizine three times a day for dizziness 6. Follow up with your Oncologist as previously scheduled 7. Use the Nystatin cream on the areas where rash is present 8. If symptoms worsen, please return to the ED 1. seguimiento con patiño mdico de atencin primaria en 1-2 semanas 2. Solicite zayra referencia a un oftalmlogo de patiño PCP para evaluar los cambios en patiño visin 3. usted necesitar zayra IRM del cerebro para evaluar los cambios que se observan en el cerebro de CT 4. Usted se beneficiara de usar un enjuague nasal salino simple puesto que el CT demostr sinusitis 5. [place] meclizine lynnette veces al da para los mareos 6. seguimiento con patiño onclogo srikanth se program previamente 7. Use la crema de nistatina en las reas donde est presente la erupcin 8. Si los sntomas empeoran, por favor vuelva al Ed Primary Care Provider Jas Hendrix Time spent on discharge: > 30 minutes Pending Labs Laboratory Tests Test 09/28/17 04:18 White Blood Count 7.310^3/ul (4.8-10.8) Red Blood Count 3.0910^6/ul (4.70-6.10) Hemoglobin 8.9g/dl (14.0-18.0) Hematocrit 27.0% (42.0-52.0) Mean Corpuscular Volume 87.4fl (82.0-101.0) Mean Corpuscular Hemoglobin 28.8pg (29.0-33.0) Mean Corpuscular Hemoglobin Concent 33.0g/dl (32.0-37.0) Red Cell Distribution Width 17.2% (11.5-14.5) Platelet Count 71266^3/UL (140-415) Mean Platelet Volume 9.6fl (7.4-10.4) Neutrophils % 62.9% (39.0-77.0) Lymphocytes % 18.3% (15.0-51.0) Monocytes % 11.4% (0.0-11.0) Eosinophils % 0.4% (0.0-7.0) Basophils % 0.7% (0.0-2.0) Nucleated Red Blood Cells % 0.5/100WBC (0.0-0.0) Neutrophils # 4.610^3/ul (1.6-7.5) Lymphocytes # 1.310^3/ul (0.8-2.9) Monocytes # 0.810^3/ul (0.3-0.9) Eosinophils # 0.010^3/ul (0.0-0.5) Basophils # 0.110^3/ul (0.0-0.1) Nucleated Red Blood Cells # 0.010^3/ul (0.0-0.0) Sodium Level 142mmol/L (135-144) Potassium Level 3.3mmol/L (3.5-5.1) Chloride Level 109mmol/L (97-110) Carbon Dioxide Level 27mmol/L (21-31) Anion Gap 9 (8-16) Blood Urea Nitrogen 6mg/dl (7-20) Creatinine 0.92mg/dl (0.61-1.24) Glucose Level 109mg/dl (70-220) Calcium Level 8.2mg/dl (8.4-10.2) Phosphorus Level 1.3mg/dl (2.5-4.9) Magnesium Level 2.3mg/dl (1.7-2.5) Albumin 3.0g/dl (3.3-4.9) YANET CHARLTON MD Sep 28, 2017 09:41
== END 2017-09-28 12:14 | disposition home health service (06) | DRG 809 ==
LOC: E/R 18:19 → MS1 21:21
PROVIDERS: ADMIT Internal Medicine; ATTEND Internal Medicine
PROC: 30233N1 Transfusion of Nonautologous Red Blood Cells into Peripheral Vein, Percutaneous Approach (ICD-10-PCS; principal; 2017-09-23)
DX: D61.810 Antineoplastic chemotherapy induced pancytopenia (principal); N39.0 Urinary tract infection, site not specified; D70.1 Agranulocytosis secondary to cancer chemotherapy; C61 Malignant neoplasm of prostate; I10 Essential (primary) hypertension; E11.9 Type 2 diabetes mellitus without complications; E78.5 Hyperlipidemia, unspecified; L30.9 Dermatitis, unspecified; R42 Dizziness and giddiness; D61.818 Other pancytopenia; H54.3 Unqualified visual loss, both eyes; T45.1X5A Adverse effect of antineoplastic and immunosuppressive drugs, initial encounter
CPT/HCPCS: 36415; 36430; 70450; 71010; 80048; 80053; 80061; 80069; 80202; 81001; 82728; 82962; 83036; 83540; 83605; 83735; 84100; 84484; 85025; 85610; 85730; 86850; 86900; 86901; 86920; 87040; 87086; 93005; 96365; 96366; 96372; 96375; 97162; J0692; J0696; J2270; J2405; J2543; J3010; J3370; J3480; J7030; J7050; P9016

== ENCOUNTER 2017-11-15 20:37 | Emergency (ER) | END 2017-11-16 04:23 | disposition left against medical advice (07) ==

== ENCOUNTER 2017-11-20 09:40 | Inpatient (IN) | END 2017-11-22 13:24 | disposition home or self-care (01) | DRG 606 ==